=== PATIENT | male | born 1940 | race Caucasian/White ===

== ENCOUNTER 2017-12-08 00:50 | Emergency (ER) | payer OTHER ==
[~2017-12-08] VITALS: Ht 175.3 cm; Wt 81.6 kg
[~2017-12-08 00:50] MED LIST: ACET325C PO; ASA81 PO; CEFE1PIG3 IV; CLOP75TA2 PO; DOCU-144 PO; DONE10TA44 PO; HYDR-1189 PO; IMIP50TA2 PO; INSU100V11 SQ; INSU100V26 SUBCUT; LEVO88TA2 PO; LISI40TA4 PO; METO-442 PO; NIAC500T2 PO; NITSL SL; NOR10 PO; PRAM0.253 PO
[2017-12-08 00:56] VITALS: BP_SYST 101
[2017-12-08 02:12] LABS: BASOPHILS % (AUTO) 0.4 % (0.0-2.0); EOSINOPHILS # (AUTO) 0.1 K/uL (0.0-0.4); EOSINOPHILS % (AUTO) 1.8 % (0.0-4.0); HEMATOCRIT 43.5 % (36-54); HEMOGLOBIN 14.7 g/dL (14.0-18.0); LYMPHOCYTES # (AUTO) 2.1 K/uL (1.0-5.5); LYMPHOCYTES % (AUTO) 26.8 % (20.5-51.5); MEAN CORPUSCULAR HEMOGLOBIN 32 pg (27-31); MEAN CORPUSCULAR HGB CONC 34 % (32-36); MEAN CORPUSCULAR VOLUME 93 fL (79.0-98.0); MONOCYTES # (AUTO) 0.7 K/uL (0.0-1.0); MONOCYTES % (AUTO) 9.5 % (1.7-9.3); NEUTROPHILS # (AUTO) 4.8 K/uL (1.8-7.7); NEUTROPHILS % (AUTO) 61.5 % (40.0-70.0); PLATELET COUNT (AUTO) 292 K/uL (130-430); RED BLOOD CELL COUNT(AUTO) 4.67 MIL/uL (4.2-6.2); RED CELL DISTRIBUTION WIDTH 12.5 % (9.0-15.0); WHITE BLOOD COUNT (AUTO) 7.7 K/uL (4.8-10.8)
[2017-12-08 02:21] LABS: ANION GAP 5 (5-15); CALCIUM 10.2 mg/dL (8.4-11.0); CHLORIDE 102 mmol/L (98-107); CREATININE 0.84 mg/dL (0.55-1.30); GLUCOSE 129 mg/dL (70-99); POTASSIUM 3.8 mmol/L (3.5-5.1); SODIUM SERUM 136 mmol/L (136-145); UREA NITROGEN, BLOOD 24 mg/dL (8-21)
[2017-12-08 02:26] LABS: ALANINE AMINOTRANSFERASE 39 U/L (12-78); ALBUMIN 3.8 g/dL (3.4-4.8); ASPARTATE AMINOTRANSFERASE 20 U/L (10-37); TOTAL BILIRUBIN 0.7 mg/dL (0.0-1.0)
[2017-12-08 02:28] LABS: PROTHROMBIN TIME 10.2 SECS (9.5-12.5)
[2017-12-08 04:00] VITALS: BP_SYST 100
== END 2017-12-08 04:00 | disposition home or self-care (01) ==
LOC: SED 00:50
DX: S09.90XA Unspecified injury of head, initial encounter (principal); F03.90 Unspecified dementia, unspecified severity, without behavioral disturbance, psychotic disturbance, mood disturbance, and anxiety; I25.10 Atherosclerotic heart disease of native coronary artery without angina pectoris; E11.9 Type 2 diabetes mellitus without complications; I10 Essential (primary) hypertension; N40.0 Benign prostatic hyperplasia without lower urinary tract symptoms; Z88.0 Allergy status to penicillin; Z79.4 Long term (current) use of insulin; Z79.82 Long term (current) use of aspirin; Z79.899 Other long term (current) drug therapy; W18.00XA Striking against unspecified object with subsequent fall, initial encounter; Y93.89 Activity, other specified; Y92.89 Other specified places as the place of occurrence of the external cause; Y99.8 Other external cause status
CPT/HCPCS: 36415; 70450-TC; 80053; 85025; 85610-TC; 85730-TC; 99285

== ENCOUNTER 2018-02-16 12:52 | Emergency (ER) | payer OTHER ==
[~2018-02-16] VITALS: Ht 182.9 cm; Wt 77.1 kg
[~2018-02-16 12:52] MED LIST changes: +ESOM40CA PO; +EXEN2VIA SQ; +FOLI-59 PO; -HYDR-1189 PO; +INSU100V9 SUBCUT; +LOPE2CAP PO; +MEMA28CA PO; +MIRA25TA PO; +NEU300 PO; +OMEG1CAP55 PO; +ROSU10TA PO; +VITD2000 PO; +[UNRECOGNIZED DRUG - CODE] PO
[2018-02-16 12:55] VITALS: BP_SYST 98
[2018-02-16 14:26] LABS: ANION GAP 5 (5-15); CALCIUM 9.5 mg/dL (8.4-11.0); CHLORIDE 101 mmol/L (98-107); CREATININE 0.86 mg/dL (0.55-1.30); GLUCOSE 160 mg/dL (70-99); POTASSIUM 4.3 mmol/L (3.5-5.1); SODIUM SERUM 138 mmol/L (136-145); UREA NITROGEN, BLOOD 10 mg/dL (8-21)
[2018-02-16 14:27] LABS: BASOPHILS % (AUTO) 0.3 % (0.0-2.0); EOSINOPHILS # (AUTO) 0.4 K/uL (0.0-0.4); EOSINOPHILS % (AUTO) 4.2 % (0.0-4.0); HEMATOCRIT 44.5 % (36-54); HEMOGLOBIN 14.8 g/dL (14.0-18.0); LYMPHOCYTES # (AUTO) 1.2 K/uL (1.0-5.5); LYMPHOCYTES % (AUTO) 11.1 % (20.5-51.5); MEAN CORPUSCULAR HEMOGLOBIN 31 pg (27-31); MEAN CORPUSCULAR HGB CONC 33 % (32-36); MONOCYTES # (AUTO) 0.6 K/uL (0.0-1.0); NEUTROPHILS # (AUTO) 8.4 K/uL (1.8-7.7); NEUTROPHILS % (AUTO) 78.4 % (40.0-70.0); PLATELET COUNT (AUTO) 262 K/uL (130-430); RED BLOOD CELL COUNT(AUTO) 4.84 MIL/uL (4.2-6.2); RED CELL DISTRIBUTION WIDTH 12.2 % (9.0-15.0); WHITE BLOOD COUNT (AUTO) 10.6 K/uL (4.8-10.8)
[2018-02-16 14:30] LABS: PROTHROMBIN TIME 10.2 SECS (9.5-12.5)
[2018-02-16 14:31] LABS: ALANINE AMINOTRANSFERASE 374 U/L (12-78); ALBUMIN 2.8 g/dL (3.4-4.8); ASPARTATE AMINOTRANSFERASE 151 U/L (10-37); TOTAL BILIRUBIN 0.7 mg/dL (0.0-1.0)
[2018-02-16 14:34] LABS: MEAN CORPUSCULAR VOLUME 92 fL (79.0-98.0)
[2018-02-16] MEDS ORDERED: ACETAMINOPHEN 325 MG TABLET PO ONE (16:00)
[2018-02-16 16:06] VITALS: BP_SYST 110
== END 2018-02-16 16:06 | disposition home or self-care (01) ==
LOC: SED 12:52
DX: S16.1XXA Strain of muscle, fascia and tendon at neck level, initial encounter (principal); S09.90XA Unspecified injury of head, initial encounter; I10 Essential (primary) hypertension; F03.90 Unspecified dementia, unspecified severity, without behavioral disturbance, psychotic disturbance, mood disturbance, and anxiety; N40.0 Benign prostatic hyperplasia without lower urinary tract symptoms; I25.10 Atherosclerotic heart disease of native coronary artery without angina pectoris; E11.9 Type 2 diabetes mellitus without complications; Z79.4 Long term (current) use of insulin; Z79.82 Long term (current) use of aspirin; Z88.0 Allergy status to penicillin; Z90.49 Acquired absence of other specified parts of digestive tract; Z79.01 Long term (current) use of anticoagulants; Z95.9 Presence of cardiac and vascular implant and graft, unspecified; Z79.899 Other long term (current) drug therapy; W19.XXXA Unspecified fall, initial encounter; Y93.89 Activity, other specified; Y92.89 Other specified places as the place of occurrence of the external cause; Y99.8 Other external cause status
CPT/HCPCS: 36415; 70450-TC; 72125-TC; 80053; 84484; 85025; 85610-TC; 85730-TC; 93005; 99285

== ENCOUNTER 2018-04-07 09:10 | Inpatient (IN) | payer OTHER ==
[~2018-04-07] VITALS: Ht 180.3 cm; Wt 74.4 kg
[2018-04-07 09:10] VITALS: BP_SYST 116
[2018-04-07] MEDS ORDERED: NACL 0.9% 1,000 ML IV ONE (09:18)
[2018-04-07] MEDS ORDERED: ASPIRIN 81 MG TAB.CHEW PO ONE (09:30)
[2018-04-07 10:10] LABS: ANION GAP 11 (5-15); CALCIUM 9.3 mg/dL (8.4-11.0); CHLORIDE 103 mmol/L (98-107); CREATININE 0.87 mg/dL (0.55-1.30); GLUCOSE 148 mg/dL (70-99); POTASSIUM 3.4 mmol/L (3.5-5.1); SODIUM SERUM 140 mmol/L (136-145); UREA NITROGEN, BLOOD 18 mg/dL (8-21)
[2018-04-07 10:14] LABS: ALANINE AMINOTRANSFERASE 695 U/L (12-78); ALBUMIN 3.9 g/dL (3.4-4.8); AMYLASE 72 U/L (0-100); ASPARTATE AMINOTRANSFERASE 483 U/L (10-37); INR 1.6 (0.80-1.20); LIPASE 317 U/L (73-393); PROTHROMBIN TIME 16.4 SECS (9.5-12.5); TOTAL BILIRUBIN 0.7 mg/dL (0.0-1.0)
[2018-04-07 10:15] LABS: ALCOHOL, BLOOD < 3 mg/dL (<10)
[2018-04-07 10:24] LABS: EOSINOPHILS # (AUTO) 0.4 K/uL (0.0-0.4); HEMATOCRIT 48.3 % (36-54); LYMPHOCYTES # (AUTO) 1.5 K/uL (1.0-5.5); LYMPHOCYTES % (AUTO) 19.7 % (20.5-51.5); MEAN CORPUSCULAR HEMOGLOBIN 31 pg (27-31); MEAN CORPUSCULAR HGB CONC 33 % (32-36); MEAN CORPUSCULAR VOLUME 93 fL (79.0-98.0); MONOCYTES # (AUTO) 0.7 K/uL (0.0-1.0); MONOCYTES % (AUTO) 9.2 % (1.7-9.3); PLATELET COUNT (AUTO) 160 K/uL (130-430); RED BLOOD CELL COUNT(AUTO) 5.19 MIL/uL (4.2-6.2); RED CELL DISTRIBUTION WIDTH 13.8 % (9.0-15.0); WHITE BLOOD COUNT (AUTO) 7.6 K/uL (4.8-10.8)
[2018-04-07 10:27] LABS: BASOPHILS % (AUTO) 0.1 % (0.0-2.0)
[2018-04-07] MEDS ORDERED: CLOPIDOGREL BISULFATE 75 MG TABLET PO ONE (10:30)
[2018-04-07 11:13] LABS: BILIRUBIN,URINE 1+ (NEGATIVE); BLOOD, URINE NEGATIVE (NEGATIVE); CLARITY/URINE CLEAR (CLEAR); COLOR,URINE YELLOW (YELLOW); GLUCOSE,URINE NEGATIVE (NEGATIVE); KETONES,URINE 1+ (NEGATIVE); LEUKOCYTE ESTERASE ,URINE NEGATIVE (NEGATIVE); NITRITE, URINE NEGATIVE (NEGATIVE); PROTEIN URINE NEGATIVE (NEGATIVE)
[2018-04-07 11:19] LABS: BACTERIA,URINE RARE /HPF (None Seen); MUCUS,URINE 1+ /LPF (None Seen); RBC,URINE 0-3 /HPF (0-3); WBC,URINE 0-3 /HPF (0-3)
[2018-04-07 11:24] VITALS: BP_SYST 139
[2018-04-07 11:24] LABS: BARBITURATE, URINE NEGATIVE (NEG <=200); BENZODIAZEPINE, URINE NEGATIVE (NEG <=150); CANNABINOID, URINE NEGATIVE (NEG <=50); COCAINE, URINE NEGATIVE (NEG <=150); METHAMPHETAMINES SCREEN,URINE NEGATIVE (NEG <=500); OPIATE, URINE NEGATIVE (NEG <=100); PHENCYCLIDINE SCREEN,URINE NEGATIVE (NEG <=25); UR TRICYCLIC ANTIDEPRESSANTS NEGATIVE (NEG <=300); URINE AMPHETAMINE NEGATIVE (NEG <=500); URINE METHADONE NEGATIVE (NEG <=200); URINE OXYCODONE SCREEN NEGATIVE (NEG <=100); URINE PROPOXYPHENE SCREEN NEGATIVE (NEG <=300)
[2018-04-07 11:27] VITALS: BP_SYST 139
[2018-04-07] MEDS ORDERED: D5LR 1,000 ML IV SCH (13:30)
[2018-04-07] MEDS ORDERED: POTASSIUM CHLORIDE 40 MEQ, LIDOCAINE JECT 2% PF 100 MG 50 MG in NS 250 ML IV ONE (13:30)
[2018-04-07] MEDS ORDERED: NITROGLYCERIN 0.4 MG TAB.SUBL SL PRN (13:45)
[2018-04-07] MEDS ORDERED: DEXTROSE 50% JECT 50 ML DISP.SYRIN IVP PRN (14:00)
[2018-04-07 15:24] VITALS: BP_SYST 144
[2018-04-07] MEDS: INSULIN REGULAR, HUMAN 100 UNITS/ML, 10 ML VIAL (novoLIN R) SUBCUT PRN ×2 (17:30→21:28)
[2018-04-07 20:00] VITALS: BP_SYST 158
[2018-04-07] MEDS ORDERED: PRAMIPEXOLE DI-HCL 0.25 MG TABLET PO SCH (21:00)
[2018-04-07] MEDS ORDERED: NON-FORMULARY MEDICATION (Mirabegron (Myrbetriq) 25 MG) PO SCH (21:00)
[2018-04-07] MEDS: DONEPEZIL HCL 5 MG TABLET (ARICEPT) PO SCH (21:19)
[2018-04-07] MEDS: amLODIPine BESYLATE 10 MG TABLET PO SCH (21:21)
[2018-04-07] MEDS ORDERED: cloNIDine HCL 0.1 MG TABLET PO PRN (23:15)
[2018-04-07] MEDS: LR 1,000 ML IV SCH (23:45)
[2018-04-08 00:09] VITALS: BP_SYST 151
[2018-04-08 04:09] VITALS: BP_SYST 143
[2018-04-08] MEDS: LEVOTHYROXINE SODIUM 0.075 MG TABLET PO SCH (06:14)
[2018-04-08] MEDS: LEVOTHYROXINE SODIUM 0.1 MG TABLET PO SCH (06:14)
[2018-04-08] MEDS: INSULIN REGULAR, HUMAN 100 UNITS/ML, 10 ML VIAL (novoLIN R) SUBCUT PRN ×3 (06:14→20:36)
[2018-04-08] MEDS ORDERED: LEVOTHYROXINE SODIUM 0.088 MG TABLET PO SCH (07:00)
[2018-04-08 07:30] LABS: ALBUMIN 3.4 g/dL (3.4-4.8); ANION GAP 6 (5-15); CALCIUM 8.8 mg/dL (8.4-11.0); CHLORIDE 108 mmol/L (98-107); CHOLESTEROL 67 mg/dL (<200); CREATININE 0.72 mg/dL (0.55-1.30); GLUCOSE 161 mg/dL (70-99); HDL CHOLESTEROL 40 mg/dL (>45); LDL CHOLESTEROL 19 mg/dL (<100); POTASSIUM 3.5 mmol/L (3.5-5.1); SODIUM SERUM 141 mmol/L (136-145); TOTAL BILIRUBIN 0.7 mg/dL (0.0-1.0); TRIGLYCERIDES 38 mg/dL (30-150); UREA NITROGEN, BLOOD 14 mg/dL (8-21)
[2018-04-08 07:36] LABS: ASPARTATE AMINOTRANSFERASE 240 U/L (10-37)
[2018-04-08 07:37] LABS: ALANINE AMINOTRANSFERASE 475 U/L (12-78)
[2018-04-08 07:44] LABS: HEMATOCRIT 45.5 % (36-54); HEMOGLOBIN 15.3 g/dL (14.0-18.0); MEAN CORPUSCULAR HEMOGLOBIN 31 pg (27-31); MEAN CORPUSCULAR HGB CONC 34 % (32-36); MEAN CORPUSCULAR VOLUME 93 fL (79.0-98.0); PLATELET COUNT (AUTO) 118 K/uL (130-430); RED CELL DISTRIBUTION WIDTH 13.9 % (9.0-15.0); WHITE BLOOD COUNT (AUTO) 7.4 K/uL (4.8-10.8)
[2018-04-08 08:00] VITALS: BP_SYST 135
[2018-04-08] MEDS ORDERED: amLODIPine BESYLATE 10 MG TABLET PO SCH (09:00)
[2018-04-08 09:02] LABS: BASOPHILS % (MANUAL) 0 % (0-2); EOSINOPHILS % (MANUAL) 4 % (0-7); LYMPHOCYTES % (MANUAL) 15 % (20-46); MONOCYTES % (MANUAL) 13 % (0-11)
[2018-04-08] MEDS: MEMANTINE HCL 5 MG TABLET PO SCH ×2 (09:20→20:24)
[2018-04-08] MEDS: PANTOPRAZOLE SODIUM 40 MG TAB PO SCH (09:20)
[2018-04-08] MEDS: CHOLECALCIFEROL (VITAMIN D3) 2,000 UNIT TABLET PO SCH (09:20)
[2018-04-08] MEDS: MULTIVITS,CA,MINERALS/IRON/FA 1 TABLET PO SCH (09:22)
[2018-04-08] MEDS: METOPROLOL TARTRATE 50 MG TABLET PO SCH (09:22)
[2018-04-08] MEDS: CLOPIDOGREL BISULFATE 75 MG TABLET PO SCH (09:22)
[2018-04-08] MEDS: ASPIRIN 81 MG TAB.CHEW PO SCH (09:22)
[2018-04-08 12:05] VITALS: BP_SYST 114
[2018-04-08] MEDS: LR 1,000 ML IV SCH (15:00)
[2018-04-08 16:07] VITALS: BP_SYST 117
[2018-04-08] MEDS: CARBIDOPA/LEVODOPA 25/100 MG TABLET PO SCH ×2 (17:50→20:24)
[2018-04-08 19:45] VITALS: BP_SYST 149
[2018-04-08] MEDS: amLODIPine BESYLATE 10 MG TABLET PO SCH (20:18)
[2018-04-08] MEDS: DONEPEZIL HCL 5 MG TABLET (ARICEPT) PO SCH (20:24)
[2018-04-09 00:14] VITALS: BP_SYST 132
[2018-04-09] MEDS: LR 1,000 ML IV SCH ×2 (03:51→17:16)
[2018-04-09] MEDS: LEVOTHYROXINE SODIUM 0.075 MG TABLET PO SCH (06:08)
[2018-04-09] MEDS: LEVOTHYROXINE SODIUM 0.1 MG TABLET PO SCH (06:08)
[2018-04-09 07:19] LABS: BASOPHILS % (AUTO) 0.6 % (0.0-2.0); EOSINOPHILS # (AUTO) 0.4 K/uL (0.0-0.4); EOSINOPHILS % (AUTO) 5.4 % (0.0-4.0); HEMATOCRIT 46.8 % (36-54); LYMPHOCYTES # (AUTO) 1.5 K/uL (1.0-5.5); LYMPHOCYTES % (AUTO) 22.1 % (20.5-51.5); MEAN CORPUSCULAR HEMOGLOBIN 31 pg (27-31); MEAN CORPUSCULAR HGB CONC 34 % (32-36); MEAN CORPUSCULAR VOLUME 92 fL (79.0-98.0); MONOCYTES # (AUTO) 0.7 K/uL (0.0-1.0); MONOCYTES % (AUTO) 10.7 % (1.7-9.3); NEUTROPHILS # (AUTO) 4.1 K/uL (1.8-7.7); NEUTROPHILS % (AUTO) 61.2 % (40.0-70.0); PLATELET COUNT (AUTO) 109 K/uL (130-430); RED BLOOD CELL COUNT(AUTO) 5.11 MIL/uL (4.2-6.2); RED CELL DISTRIBUTION WIDTH 13.8 % (9.0-15.0); WHITE BLOOD COUNT (AUTO) 6.7 K/uL (4.8-10.8)
[2018-04-09 07:28] LABS: PROTHROMBIN TIME 10.3 SECS (9.5-12.5)
[2018-04-09 08:30] VITALS: BP_SYST 124
[2018-04-09] MEDS: ASPIRIN 81 MG TAB.CHEW PO SCH (08:33)
[2018-04-09] MEDS: CHOLECALCIFEROL (VITAMIN D3) 2,000 UNIT TABLET PO SCH (08:33)
[2018-04-09] MEDS: PANTOPRAZOLE SODIUM 40 MG TAB PO SCH (08:33)
[2018-04-09] MEDS: MULTIVITS,CA,MINERALS/IRON/FA 1 TABLET PO SCH (08:33)
[2018-04-09] MEDS: MEMANTINE HCL 5 MG TABLET PO SCH ×2 (08:34→21:48)
[2018-04-09] MEDS: CLOPIDOGREL BISULFATE 75 MG TABLET PO SCH (08:34)
[2018-04-09] MEDS: METOPROLOL TARTRATE 50 MG TABLET PO SCH (08:34)
[2018-04-09] MEDS: CARBIDOPA/LEVODOPA 25/100 MG TABLET PO SCH ×4 (08:35→21:48)
[2018-04-09 11:07] LABS: HEPATITIS A AB, IgM Negative (Negative); HEPATITIS B CORE AB, IgM Negative (Negative); HEPATITIS B SURFACE AG Negative (Negative)
[2018-04-09 11:34] VITALS: BP_SYST 105
[2018-04-09] MEDS: INSULIN REGULAR, HUMAN 100 UNITS/ML, 10 ML VIAL (novoLIN R) SUBCUT PRN ×3 (11:54→21:57)
[2018-04-09 13:43] LABS: ALANINE AMINOTRANSFERASE 331 U/L (12-78); ALBUMIN 3.5 g/dL (3.4-4.8); ANION GAP 7 (5-15); ASPARTATE AMINOTRANSFERASE 290 U/L (10-37); CALCIUM 8.9 mg/dL (8.4-11.0); CHLORIDE 106 mmol/L (98-107); CREATININE 0.65 mg/dL (0.55-1.30); GLUCOSE 138 mg/dL (70-99); POTASSIUM 3.4 mmol/L (3.5-5.1); SODIUM SERUM 139 mmol/L (136-145); TOTAL BILIRUBIN 0.8 mg/dL (0.0-1.0); UREA NITROGEN, BLOOD 10 mg/dL (8-21)
[2018-04-09 16:06] VITALS: BP_SYST 98
[2018-04-09 20:00] VITALS: BP_SYST 134
[2018-04-09] MEDS: DONEPEZIL HCL 5 MG TABLET (ARICEPT) PO SCH (21:48)
[2018-04-09] MEDS: amLODIPine BESYLATE 10 MG TABLET PO SCH (21:49)
[2018-04-10] VITALS (7 sets, daily range): BP systolic 98–135
[2018-04-10] MEDS: LEVOTHYROXINE SODIUM 0.075 MG TABLET PO SCH (06:04)
[2018-04-10] MEDS: LEVOTHYROXINE SODIUM 0.1 MG TABLET PO SCH (06:04)
[2018-04-10] MEDS: LR 1,000 ML IV SCH ×2 (06:12→21:13)
[2018-04-10 07:28] LABS: BASOPHILS % (AUTO) 0.6 % (0.0-2.0); EOSINOPHILS # (AUTO) 0.2 K/uL (0.0-0.4); EOSINOPHILS % (AUTO) 3.7 % (0.0-4.0); HEMOGLOBIN 15.9 g/dL (14.0-18.0); LYMPHOCYTES # (AUTO) 1.4 K/uL (1.0-5.5); LYMPHOCYTES % (AUTO) 21.6 % (20.5-51.5); MEAN CORPUSCULAR HEMOGLOBIN 31 pg (27-31); MEAN CORPUSCULAR HGB CONC 34 % (32-36); MEAN CORPUSCULAR VOLUME 93 fL (79.0-98.0); MONOCYTES # (AUTO) 0.8 K/uL (0.0-1.0); MONOCYTES % (AUTO) 11.7 % (1.7-9.3); NEUTROPHILS # (AUTO) 4.2 K/uL (1.8-7.7); NEUTROPHILS % (AUTO) 62.4 % (40.0-70.0); PLATELET COUNT (AUTO) 133 K/uL (130-430); RED BLOOD CELL COUNT(AUTO) 5.07 MIL/uL (4.2-6.2); RED CELL DISTRIBUTION WIDTH 13.5 % (9.0-15.0); WHITE BLOOD COUNT (AUTO) 6.6 K/uL (4.8-10.8)
[2018-04-10 08:09] LABS: AFP, TUMOR MARKER 1.8 ng/mL (0.0-8.3); HEPATITIS A AB, IgM Negative (Negative); HEPATITIS B CORE AB, IgM Negative (Negative); HEPATITIS B SURFACE AG Negative (Negative)
[2018-04-10 08:49] LABS: ALANINE AMINOTRANSFERASE 191 U/L (12-78); ALBUMIN 3.1 g/dL (3.4-4.8); ANION GAP 10 (5-15); ASPARTATE AMINOTRANSFERASE 188 U/L (10-37); CHLORIDE 103 mmol/L (98-107); CREATININE 0.71 mg/dL (0.55-1.30); GLUCOSE 148 mg/dL (70-99); POTASSIUM 3.3 mmol/L (3.5-5.1); SODIUM SERUM 136 mmol/L (136-145); UREA NITROGEN, BLOOD 10 mg/dL (8-21)
[2018-04-10] MEDS: METOPROLOL TARTRATE 50 MG TABLET PO SCH (09:00)
[2018-04-10] MEDS: CHOLECALCIFEROL (VITAMIN D3) 2,000 UNIT TABLET PO SCH (09:14)
[2018-04-10] MEDS: CARBIDOPA/LEVODOPA 25/100 MG TABLET PO SCH ×4 (09:14→21:07)
[2018-04-10] MEDS: PANTOPRAZOLE SODIUM 40 MG TAB PO SCH (09:14)
[2018-04-10] MEDS: CLOPIDOGREL BISULFATE 75 MG TABLET PO SCH (09:14)
[2018-04-10] MEDS: ASPIRIN 81 MG TAB.CHEW PO SCH (09:15)
[2018-04-10] MEDS: MULTIVITS,CA,MINERALS/IRON/FA 1 TABLET PO SCH (09:15)
[2018-04-10] MEDS: MEMANTINE HCL 5 MG TABLET PO SCH ×2 (09:15→21:07)
[2018-04-10] MEDS: INSULIN REGULAR, HUMAN 100 UNITS/ML, 10 ML VIAL (novoLIN R) SUBCUT PRN (11:28)
[2018-04-10 18:06] LABS: ANTI NUCLEAR AB WITH REFLEX Negative (Negative)
[2018-04-10] MEDS: DONEPEZIL HCL 5 MG TABLET (ARICEPT) PO SCH (21:07)
[2018-04-10] MEDS: amLODIPine BESYLATE 10 MG TABLET PO SCH (21:12)
[2018-04-11] MEDS: LEVOTHYROXINE SODIUM 0.1 MG TABLET PO SCH (06:31)
[2018-04-11] MEDS: LEVOTHYROXINE SODIUM 0.075 MG TABLET PO SCH (06:31)
[2018-04-11 07:50] VITALS: BP_SYST 111
[2018-04-11] MEDS: MEMANTINE HCL 5 MG TABLET PO SCH ×2 (08:44→20:58)
[2018-04-11] MEDS: CHOLECALCIFEROL (VITAMIN D3) 2,000 UNIT TABLET PO SCH (08:44)
[2018-04-11] MEDS: CARBIDOPA/LEVODOPA 25/100 MG TABLET PO SCH ×4 (08:44→20:58)
[2018-04-11] MEDS: CLOPIDOGREL BISULFATE 75 MG TABLET PO SCH (08:44)
[2018-04-11] MEDS: METOPROLOL TARTRATE 50 MG TABLET PO SCH (08:44)
[2018-04-11] MEDS: PANTOPRAZOLE SODIUM 40 MG TAB PO SCH (08:44)
[2018-04-11] MEDS: MULTIVITS,CA,MINERALS/IRON/FA 1 TABLET PO SCH (08:44)
[2018-04-11] MEDS: ASPIRIN 81 MG TAB.CHEW PO SCH (08:45)
[2018-04-11 10:49] LABS: ANION GAP 11 (5-15); CALCIUM 8.7 mg/dL (8.4-11.0); CHLORIDE 105 mmol/L (98-107); CREATININE 0.86 mg/dL (0.55-1.30); GLUCOSE 146 mg/dL (70-99); POTASSIUM 3.5 mmol/L (3.5-5.1); SODIUM SERUM 143 mmol/L (136-145); UREA NITROGEN, BLOOD 11 mg/dL (8-21)
[2018-04-11 10:58] LABS: ALANINE AMINOTRANSFERASE 129 U/L (12-78); ALBUMIN 3.5 g/dL (3.4-4.8); ASPARTATE AMINOTRANSFERASE 98 U/L (10-37); TOTAL BILIRUBIN 0.6 mg/dL (0.0-1.0)
[2018-04-11] MEDS: INSULIN REGULAR, HUMAN 100 UNITS/ML, 10 ML VIAL (novoLIN R) SUBCUT PRN ×2 (11:16→17:11)
[2018-04-11 12:05] VITALS: BP_SYST 104
[2018-04-11] MEDS: LR 1,000 ML IV SCH (13:21)
[2018-04-11 16:53] VITALS: BP_SYST 129
[2018-04-11 20:00] VITALS: BP_SYST 127
[2018-04-11] MEDS: DONEPEZIL HCL 5 MG TABLET (ARICEPT) PO SCH (20:58)
[2018-04-11] MEDS: amLODIPine BESYLATE 10 MG TABLET PO SCH (20:59)
[2018-04-12 00:56] VITALS: BP_SYST 115
[2018-04-12] MEDS: LR 1,000 ML IV SCH ×2 (03:36→16:54)
[2018-04-12] MEDS: LEVOTHYROXINE SODIUM 0.1 MG TABLET PO SCH (06:03)
[2018-04-12] MEDS: LEVOTHYROXINE SODIUM 0.075 MG TABLET PO SCH (06:03)
[2018-04-12 08:00] VITALS: BP_SYST 149
[2018-04-12] MEDS: PANTOPRAZOLE SODIUM 40 MG TAB PO SCH (08:43)
[2018-04-12] MEDS: CLOPIDOGREL BISULFATE 75 MG TABLET PO SCH (08:43)
[2018-04-12] MEDS: CARBIDOPA/LEVODOPA 25/100 MG TABLET PO SCH ×4 (08:44→20:55)
[2018-04-12] MEDS: MEMANTINE HCL 5 MG TABLET PO SCH ×2 (08:44→20:55)
[2018-04-12] MEDS: MULTIVITS,CA,MINERALS/IRON/FA 1 TABLET PO SCH (08:45)
[2018-04-12] MEDS: METOPROLOL TARTRATE 50 MG TABLET PO SCH (08:45)
[2018-04-12] MEDS: ASPIRIN 81 MG TAB.CHEW PO SCH (08:45)
[2018-04-12] MEDS: CHOLECALCIFEROL (VITAMIN D3) 2,000 UNIT TABLET PO SCH (08:46)
[2018-04-12 09:11] LABS: ANTI-SMOOTH MUSCLE AB 7 Units (0-19)
[2018-04-12] MEDS: INSULIN REGULAR, HUMAN 100 UNITS/ML, 10 ML VIAL (novoLIN R) SUBCUT PRN ×3 (12:21→21:03)
[2018-04-12 12:54] VITALS: BP_SYST 132
[2018-04-12 16:40] VITALS: BP_SYST 128
[2018-04-12 20:00] VITALS: BP_SYST 144
[2018-04-12] MEDS: DONEPEZIL HCL 5 MG TABLET (ARICEPT) PO SCH (20:55)
[2018-04-12] MEDS: amLODIPine BESYLATE 10 MG TABLET PO SCH (20:59)
[2018-04-12 22:29] VITALS: BP_SYST 127
[2018-04-13] MEDS: LEVOTHYROXINE SODIUM 0.075 MG TABLET PO SCH (06:15)
[2018-04-13] MEDS: LEVOTHYROXINE SODIUM 0.1 MG TABLET PO SCH (06:15)
[2018-04-13] MEDS: LR 1,000 ML IV SCH (06:16)
[2018-04-13 08:02] VITALS: BP_SYST 152
[2018-04-13] MEDS: CARBIDOPA/LEVODOPA 25/100 MG TABLET PO SCH ×2 (09:21→13:22)
[2018-04-13] MEDS: ASPIRIN 81 MG TAB.CHEW PO SCH (09:21)
[2018-04-13] MEDS: MEMANTINE HCL 5 MG TABLET PO SCH (09:21)
[2018-04-13] MEDS: CHOLECALCIFEROL (VITAMIN D3) 2,000 UNIT TABLET PO SCH (09:22)
[2018-04-13] MEDS: PANTOPRAZOLE SODIUM 40 MG TAB PO SCH (09:22)
[2018-04-13] MEDS: METOPROLOL TARTRATE 50 MG TABLET PO SCH (09:22)
[2018-04-13] MEDS: MULTIVITS,CA,MINERALS/IRON/FA 1 TABLET PO SCH (09:22)
[2018-04-13] MEDS: CLOPIDOGREL BISULFATE 75 MG TABLET PO SCH (09:22)
[2018-04-13 11:34] VITALS: BP_SYST 99
[2018-04-13] MEDS: INSULIN REGULAR, HUMAN 100 UNITS/ML, 10 ML VIAL (novoLIN R) SUBCUT PRN (11:44)
[2018-04-13 15:29] VITALS: BP_SYST 90
[2018-04-13 16:07] VITALS: BP_SYST 99
== END 2018-04-13 16:20 | DRG 280 ==
LOC: SED 09:10 → STU 10:53 → SMU 04-09 10:42
PROVIDERS: ADMIT Internal Medicine Hospice and Palliative Medicine; ATTEND Internal Medicine Hospice and Palliative Medicine
DX: I21.A1 Myocardial infarction type 2 (principal); G92 Toxic encephalopathy; R53.2 Functional quadriplegia; E11.51 Type 2 diabetes mellitus with diabetic peripheral angiopathy without gangrene; G20 Parkinson's disease; G30.9 Alzheimer's disease, unspecified; F02.80 Dementia in other diseases classified elsewhere, unspecified severity, without behavioral disturbance, psychotic disturbance, mood disturbance, and anxiety; I11.9 Hypertensive heart disease without heart failure; E78.00 Pure hypercholesterolemia, unspecified; E78.5 Hyperlipidemia, unspecified; G31.9 Degenerative disease of nervous system, unspecified; R74.0 Nonspecific elevation of levels of transaminase and lactic acid dehydrogenase [LDH]; Z66 Do not resuscitate; Z51.5 Encounter for palliative care; E87.6 Hypokalemia; I25.119 Atherosclerotic heart disease of native coronary artery with unspecified angina pectoris; N32.81 Overactive bladder; Z89.422 Acquired absence of other left toe(s); Z90.49 Acquired absence of other specified parts of digestive tract; Z95.5 Presence of coronary angioplasty implant and graft; Z79.4 Long term (current) use of insulin; Z88.0 Allergy status to penicillin
CPT/HCPCS: 36415; 70450-TC; 71045; 76700-TC; 80053; 80061; 80074; 80307; 81000-TC; 82105; 82140-TC; 82150-TC; 82550-TC; 82962; 82977-TC; 83516; 83605; 83690-TC; 83735-TC; 84484; 85007; 85025; 85027; 85610-TC; 85730-TC; 86038; 87040-TC; 87081; 87086; 93005; 93306; 96360; 97110-GP; 97116-GP; 97530-GP; 99285; G0480; G0482; J1815; J3480; J7050; J7120

== ENCOUNTER 2019-12-09 19:07 | Emergency (ER) | payer OTHER ==
[~2019-12-09] VITALS: Ht 177.8 cm; Wt 81.6 kg
[~2019-12-09 19:07] MED LIST changes: -ACET325C PO; -CEFE1PIG3 IV; -DOCU-144 PO; -LISI40TA4 PO; -OMEG1CAP55 PO; -ROSU10TA PO; +ROSU10TA2 PO; -[UNRECOGNIZED DRUG - CODE] PO
[2019-12-09 19:20] VITALS: BP_SYST 99
--- NOTE | 2019-12-09 19:26 | NUR ---
Patient triaged and placed in waiting room. VSS and patient appears in no acute distress at this time. Accompanied by family, awaiting available bed, and MD notified of need for MSE.
[2019-12-09 19:49] LABS: BASOPHILS # (AUTO) 0.1 K/uL (0.0-0.2); BASOPHILS % (AUTO) 0.8 % (0.0-2.0); EOSINOPHILS # (AUTO) 0.3 K/uL (0.0-0.4); EOSINOPHILS % (AUTO) 2.7 % (0.0-4.0); HEMATOCRIT 44.5 % (36-54); HEMOGLOBIN 15.3 g/dL (14.0-18.0); LYMPHOCYTES # (AUTO) 2.1 K/uL (1.0-5.5); LYMPHOCYTES % (AUTO) 19.4 % (20.5-51.5); MEAN CORPUSCULAR HEMOGLOBIN 32 pg (27-31); MEAN CORPUSCULAR HGB CONC 34 % (32-36); MEAN CORPUSCULAR VOLUME 92 fL (79.0-98.0); MONOCYTES # (AUTO) 0.8 K/uL (0.0-1.0); MONOCYTES % (AUTO) 7.7 % (1.7-9.3); NEUTROPHILS # (AUTO) 7.4 K/uL (1.8-7.7); NEUTROPHILS % (AUTO) 69.4 % (40.0-70.0); PLATELET COUNT (AUTO) 226 K/uL (130-430); RED BLOOD CELL COUNT(AUTO) 4.87 MIL/uL (4.2-6.2); RED CELL DISTRIBUTION WIDTH 13.4 % (9.0-15.0); WHITE BLOOD COUNT (AUTO) 10.7 K/uL (4.8-10.8)
[2019-12-09 20:01] LABS: ANION GAP 6 (5-15); CALCIUM 9.2 mg/dL (8.4-11.0); CHLORIDE 103 mmol/L (98-107); CREATININE 0.97 mg/dL (0.55-1.30); GLUCOSE 159 mg/dL (70-99); SODIUM SERUM 138 mmol/L (136-145); UREA NITROGEN, BLOOD 32 mg/dL (8-21)
[2019-12-09 20:07] LABS: CHOLESTEROL 135 mg/dL (<200); HDL CHOLESTEROL 28 mg/dL (>45); LDL CHOLESTEROL 75 mg/dL (<100); TRIGLYCERIDES 189 mg/dL (30-150)
[2019-12-09 20:13] LABS: ALANINE AMINOTRANSFERASE 20 U/L (12-78); ASPARTATE AMINOTRANSFERASE 14 U/L (10-37); TOTAL BILIRUBIN 0.7 mg/dL (0.0-1.0)
[2019-12-09 20:17] LABS: ACETAMINOPHEN < 1 ug/mL (1-30); ALCOHOL, BLOOD < 3 mg/dL (<10)
--- NOTE | 2019-12-09 22:49 | NUR ---
Reny matta in ED - 12/09/19 at 2249 by MELI Patient to bed 2 to [facility] for evaluation. Side rails up. Report given to KEIRA Live.
--- NOTE | 2019-12-09 23:20 | NUR ---
79 y/o male brought in by Son for medical clearance from [facility], d/t the facility saying that the current medication the Pt has been on has been stopped. They were told now to send to a [facility] facility to get evaluated and have meds reconciled. Pt to have labs drawn, urine collected, and MRSA swab done. Pt is AAOx1. On RA, VSS. No s/s of distress noted. Will continue to monitor.
[2019-12-09 23:21] LABS: BILIRUBIN,URINE NEGATIVE (NEGATIVE); BLOOD, URINE NEGATIVE (NEGATIVE); CLARITY/URINE CLEAR (CLEAR); COLOR,URINE YELLOW (YELLOW); GLUCOSE,URINE NEGATIVE (NEGATIVE); KETONES,URINE NEGATIVE (NEGATIVE); LEUKOCYTE ESTERASE ,URINE NEGATIVE (NEGATIVE); NITRITE, URINE NEGATIVE (NEGATIVE); PROTEIN URINE NEGATIVE (NEGATIVE)
[2019-12-09 23:32] LABS: BARBITURATE, URINE NEGATIVE (NEG <=200); BENZODIAZEPINE, URINE NEGATIVE (NEG <=150); CANNABINOID, URINE NEGATIVE (NEG <=50); COCAINE, URINE NEGATIVE (NEG <=150); METHAMPHETAMINES SCREEN,URINE NEGATIVE (NEG <=500); OPIATE, URINE NEGATIVE (NEG <=100); PHENCYCLIDINE SCREEN,URINE NEGATIVE (NEG <=25); UR TRICYCLIC ANTIDEPRESSANTS POSITIVE (NEG <=300); URINE AMPHETAMINE NEGATIVE (NEG <=500); URINE METHADONE NEGATIVE (NEG <=200); URINE OXYCODONE SCREEN NEGATIVE (NEG <=100); URINE PROPOXYPHENE SCREEN NEGATIVE (NEG <=300)
--- NOTE | 2019-12-09 23:50 | NUR ---
ER Dr. Hammonds at bedside examining patient.
--- NOTE | 2019-12-10 | NUR ---
Patient to be transferred to [facility] . Is being transferred due to higher level of care. Receiving facility has accepting physician and available space. ER physician has signed transfer form. Patient or responsible libertarian has agreed to transfer and signed form. Patient belongings inventoried and will be sent with patient. Copy of nursing notes, lab reports, EKG, Physicians Orders and X-rays to be sent with patient. Report called to Shameka at receiving facility. Receiving physician is Dr Martin and Dr. Garcia. [facility] ambulance service has been called for transfer. ETA is 0015.
[2019-12-10 00:30] VITALS: BP_SYST 140
== END 2019-12-10 00:30 ==
LOC: SED 19:07
DX: R45.1 Restlessness and agitation (principal); I10 Essential (primary) hypertension; E11.9 Type 2 diabetes mellitus without complications; I25.10 Atherosclerotic heart disease of native coronary artery without angina pectoris; Z88.0 Allergy status to penicillin; Z79.4 Long term (current) use of insulin; Z79.82 Long term (current) use of aspirin; Z79.899 Other long term (current) drug therapy
CPT/HCPCS: 36415; 80053; 80061; 80307; 81003; 83036; 85025; 87081; 99285; G0480; G0481; G0482

== ENCOUNTER 2022-03-08 02:02 | Inpatient (IN) | payer OTHER ==
[~2022-03-08] VITALS: Ht 177.8 cm; Wt 63.0 kg
[2022-03-08] VITALS (7 sets, daily range): BP systolic 98–130
[~2022-03-08 02:02] MED LIST changes: +ACET325T GT; +AMIN30LI2 GT; +ASCO500T20 GT; +ASCO500T20 PO; +CARB1TAB10 GT; +CLON0.1T GT; +HEPA500015 SUBCUT; +INSU100V9 SQ; +LANS30CA53 GT; +LEVA1.2527 INH; +LEVO137T2 GT; +LIP40 GT; +MEMA10TA56 GT; +NOR10 GT; -NOR10 PO; +SSREG SUBCUT; +VALP250S3 GT; +ZINC50TA69 GT
--- NOTE | 2022-03-08 02:02 | NUR ---
Placed in room 3 . Placed on ekg monitor, blood pressure machine and pulse oximeter. To gown for exam. Side rails up. Report given to Karla CROCKETT(priti).
--- NOTE | 2022-03-08 02:03 | NUR ---
ER at bedside examining patient.
--- NOTE | 2022-03-08 02:05 | NUR ---
Pt BIB ACLS ambulance from [facility] due to SOB/Dyspnea. Pt has hx of Dementia, schizophrenia, parkinsons, and DM. Pt placed on 15 lpm via High Flow o2. O2 95% at this time. Pt is a DNR; confirmed with family members via telephone. Addendum: 03/08/22 at 0648 by [email or web address] KEIRA Acosta
[2022-03-08] MEDS ORDERED: NACL 0.9% 1,000 ML IV ONE (02:15)
--- NOTE | 2022-03-08 02:35 | NUR ---
# 20 gauge angiocath placed to R FOREARM. Use of asceptic technique. Opsite placed over site. Blood return noted. Blood for lab drawn from site. Flushed with 10 cc of normal saline. No evidence of infiltration noted. Patient tolerated well. Addendum: 03/08/22 at 0619 by [email or web address] L FOREARM
[2022-03-08 03:10] LABS: BASOPHILS # (AUTO) 0.1 K/uL (0.0-0.2); BASOPHILS % (AUTO) 0.3 % (0.0-2.0); HEMATOCRIT 26.9 % (36-54); HEMOGLOBIN 8.7 g/dL (14.0-18.0); LYMPHOCYTES # (AUTO) 1.2 K/uL (1.0-5.5); LYMPHOCYTES % (AUTO) 2.5 % (20.5-51.5); MEAN CORPUSCULAR HEMOGLOBIN 29 pg (27-31); MEAN CORPUSCULAR HGB CONC 32 % (32-36); MEAN CORPUSCULAR VOLUME 90 fL (79.0-98.0); MONOCYTES # (AUTO) 2.2 K/uL (0.0-1.0); MONOCYTES % (AUTO) 4.8 % (1.7-9.3); NEUTROPHILS # (AUTO) 42.1 K/uL (1.8-7.7); NEUTROPHILS % (AUTO) 92.4 % (40.0-70.0); PLATELET COUNT (AUTO) 548 K/uL (130-430); RED BLOOD CELL COUNT(AUTO) 2.98 MIL/uL (4.2-6.2); RED CELL DISTRIBUTION WIDTH 15.5 % (9.0-15.0)
[2022-03-08 03:30] LABS: WHITE BLOOD COUNT (AUTO) 45.6 K/uL (4.8-10.8)
[2022-03-08 03:40] LABS: ANION GAP 13 (5-15); CALCIUM 8.8 mg/dL (8.4-11.0); CHLORIDE 103 mmol/L (98-107); CREATININE 1.16 mg/dL (0.55-1.30); GLUCOSE 229 mg/dL (70-99); POTASSIUM 4.8 mmol/L (3.5-5.1); SODIUM SERUM 141 mmol/L (136-145); UREA NITROGEN, BLOOD 43 mg/dL (8-21)
--- NOTE | 2022-03-08 03:45 | NUR ---
Patient arrived with crews in place, changed due to standard of practice prior to admission. Inserted # 16 FR Crews catheter with use of sterile technique. Immediate return of 100 cc cloudy urine noted. Bedside drainage bag placed below level of bladder. Urine sample collected and sent to lab. Pt tolerated procedure well.
[2022-03-08 03:50] LABS: CLARITY/URINE SLIGHTLY CLOUDY (CLEAR); COLOR,URINE YELLOW (YELLOW)
[2022-03-08 03:51] LABS: BILIRUBIN,URINE 1+ (NEGATIVE); GLUCOSE,URINE NEGATIVE (NEGATIVE); KETONES,URINE TRACE (NEGATIVE); PROTEIN URINE 1+ (NEGATIVE)
[2022-03-08 03:52] LABS: BLOOD, URINE 1+ (NEGATIVE); LEUKOCYTE ESTERASE ,URINE 2+ (NEGATIVE); NITRITE, URINE NEGATIVE (NEGATIVE)
[2022-03-08 03:56] LABS: ALANINE AMINOTRANSFERASE 40 U/L (12-78); ALBUMIN 1.7 g/dL (3.4-4.8); ASPARTATE AMINOTRANSFERASE 32 U/L (10-37); TOTAL BILIRUBIN 0.4 mg/dL (0.0-1.0)
[2022-03-08] MEDS ORDERED: cefTRIAXone 1 GM IVPB PREMIX 50 ML IV ONE (04:15)
[2022-03-08 04:37] LABS: BACTERIA,URINE FEW /HPF (None Seen); WBC,URINE 80-100 /HPF (0-3)
[2022-03-08 04:38] LABS: MUCUS,URINE 2+ /LPF (None Seen)
[2022-03-08] MEDS ORDERED: VANCOMYCIN HCL 1,000 MG in NS 250 ML IV ONE (05:00)
[2022-03-08] MEDS ORDERED: NOR10 PO (05:20)
--- NOTE | 2022-03-08 05:20 | NUR ---
Admit bed requested Patient will be admitted to care of . Admitted to TELE unit. Diagnosis UROSEPSIS Inpatient (Yes or No) YES Observation (Yes or No) NO Orientation concerns or request close to nursing station (Yes or No) NO Covid Status PENDING On vent or bipap NO Isolation requirements NO Needs a sitter NO From Home (Yes or if No enter name of facility) VIOLAA ARETHA Requires Dialysis (Yes or No) NO Med Rec Completed (Yes of No) YES
[2022-03-08] MEDS ORDERED: VANCOMYCIN HCL 1000 MG/VIAL IV ONE (05:58)
[2022-03-08] MEDS: LevALBUTEROL HCL 1.25 MG/0.5 ML *CONC.* VIAL.NEB (XOPENEX CONC.) INH SCH ×3 (06:00→22:19)
[2022-03-08] MEDS: NACL 0.9% 1,000 ML IV SCH ×2 (06:16→17:18)
--- NOTE | 2022-03-08 06:52 | NUR ---
Spoke to Jolly (daughter) and updated her on status of pt.
--- NOTE | 2022-03-08 08:50 | NUR ---
Patient will be admitted to care of Dr. Martin. Admitted to tele unit. Patient to room 130A. Belongings list completed. Complete and up to date summary report printed. SBAR report given to Nieves CROCKETT at bedside with opportunity for questions. Patient in stable condition.
--- NOTE | 2022-03-08 08:53 | NUR ---
Admission Note Received patient from ER with diagnosis of Urosepsis. Initial Plan of Care unable to discuss with patient.Patient is nonverbal,unable to understand and verbalize teaching. Will call Family to obtain admit information.Four eyes skin check completed with Ebonie CROCKETT. Multiple wounds noted. Photos will be taken. Oriented to room, call light, pain management and safety. Assuming care for patient.
[2022-03-08] MEDS ORDERED: PRAM0.258 GT (11:33)
[2022-03-08] MEDS ORDERED: LOPE2CAP GT (11:33)
[2022-03-08] MEDS ORDERED: METO-442 GT (11:33)
[2022-03-08] MEDS ORDERED: OXYB10TA4 GT (11:33)
[2022-03-08] MEDS ORDERED: SSREG SUBCUT (11:33)
[2022-03-08] MEDS ORDERED: GABA-331 GT (11:33)
[2022-03-08] MEDS ORDERED: SYN50 GT (11:33)
[2022-03-08] MEDS ORDERED: ASA81 GT (11:33)
[2022-03-08] MEDS ORDERED: LEVO137T2 GT (11:33)
[2022-03-08] MEDS ORDERED: MEMA10TA GT (11:33)
[2022-03-08] MEDS ORDERED: VITD2000 GT (11:33)
[2022-03-08] MEDS ORDERED: DONE10TA44 GT (11:33)
[2022-03-08] MEDS ORDERED: MULT-1117 GT (11:33)
[2022-03-08] MEDS ORDERED: INSU100I68 SQ (11:33)
[2022-03-08] MEDS ORDERED: GABA300S PO (11:33)
[2022-03-08] MEDS ORDERED: CLOP75TA32 GT (11:33)
[2022-03-08] MEDS ORDERED: IMIP50TA7 GT (11:33)
[2022-03-08] MEDS: ACETAMINOPHEN 325 MG TABLET PO PRN ×2 (12:57→14:03)
--- NOTE | 2022-03-08 17:23 | NUR ---
Pagejuaquin and spoke to and informed with the low blood pressure earlier but now resolved. Orders received for albumin and insulin sliding scale. MD will see patient.
--- NOTE | 2022-03-08 17:24 | NUR ---
BS145
[2022-03-08] MEDS ORDERED: DEXTROSE 50% JECT 50 ML DISP.SYRIN IVP PRN (17:30)
[2022-03-08] MEDS ORDERED: GLUCOSE (DEXTROSE) ORAL GEL -Adults PO PRN (17:30)
[2022-03-08] MEDS ORDERED: D5W 1,000 ML IV PRN (17:30)
[2022-03-08] MEDS ORDERED: ALBUMIN HUMAN 25% 100 ML IV ONE (17:30)
[2022-03-08] MEDS ORDERED: LOPERAMIDE HCL 2 MG CAPSULE GT SCH (18:30)
--- NOTE | 2022-03-08 18:30 | NUR ---
Dr. Andrewium here to see the patient. Addressed to MD the following concerns: patient has unstageabl wound to coccyx. Wet to dry dressing done and wound consult was placed. Order for wound culture obtained. Informed MD regarding fever earlier and low bp. Orders received and implemented.
--- NOTE | 2022-03-08 19:30 | NUR ---
Report given to lAise and passed on to RN that pt needs to be transferred to an low airloss mattress, wound culture needs to be sent and daughter Maribell requesting to be called for update before 2300. Pt stable at this time.
--- NOTE | 2022-03-08 20:10 | NUR ---
MRSA nares sent to lab.
[2022-03-08] MEDS ORDERED: MEROPENEM 500 MG VIAL IV ONE (20:15)
--- NOTE | 2022-03-08 20:18 | NUR ---
Opening notes Pt eyes open, moans to painful stimuli. O2 5L satting at 94%. IVF infusing at ordered rate L.FA 20G clear and patent. Guerrero catheter draining to gravity with leti urine. GT feeding Glucerna running at 50cc/hr no residual noted. Pt placed on low air loss mattress. Bed low, locked, siderails up x3, alarm on. Contact isolation. To monitor.
[2022-03-08] MEDS ORDERED: cefTRIAXone 1 GM IVPB PREMIX 50 ML IV SCH (21:00)
[2022-03-08] MEDS: MEROPENEM 500 MG in NS 50 ML IV SCH (21:47)
[2022-03-08] MEDS: ATORVASTATIN 20 MG TABLET GT SCH (21:54)
[2022-03-08] MEDS: GABAPENTIN 300 MG CAPSULE GT SCH (21:54)
[2022-03-08] MEDS: PRAMIPEXOLE DI-HCL 0.25 MG TABLET GT SCH (21:54)
[2022-03-08] MEDS: MEMANTINE HCL 5 MG TABLET GT SCH (21:54)
[2022-03-08] MEDS: VALPROIC ACID ORAL SYRUP 250 MG/5 ML UDC GT SCH (21:54)
[2022-03-08] MEDS: DONEPEZIL HCL 5 MG TABLET (ARICEPT) GT SCH (21:55)
[2022-03-08] MEDS: HEPARIN SODIUM,PORCINE 5,000 UNITS/ML VIAL SUBCUT SCH (21:57)
[2022-03-08] MEDS: INSULIN REGULAR, HUMAN 100 UNITS/ML, 10 ML VIAL (humuLIN R) SUBCUT PRN (22:02)
--- NOTE | 2022-03-08 23:25 | NUR ---
Pt's daughter Maribell called and spoke with her dad on the phone.
[2022-03-09] MEDS ORDERED: LEVALBUTEROL HCL 1.25 MG INH SCH
[2022-03-09] MEDS: NACL 0.9% 1,000 ML IV SCH ×3 (00:45→18:53)
[2022-03-09] MEDS: ACETAMINOPHEN 325 MG TABLET PO PRN (00:46)
[2022-03-09] MEDS: LevALBUTEROL HCL 1.25 MG/0.5 ML *CONC.* VIAL.NEB (XOPENEX CONC.) INH SCH ×3 (01:06→14:06)
[2022-03-09 01:22] VITALS: BP_SYST 113
[2022-03-09] MEDS: MEROPENEM 500 MG in NS 50 ML IV SCH ×3 (05:35→22:11)
[2022-03-09] MEDS: cloNIDine HCL 0.1 MG TABLET GT SCH ×3 (06:00→12:00)
[2022-03-09] MEDS ORDERED: LEVOTHYROXINE SODIUM 0.137 MG TABLET GT SCH (06:00)
[2022-03-09] MEDS: LEVOTHYROXINE SODIUM 0.1 MG TABLET GT SCH (06:04)
[2022-03-09] MEDS: VANCOMYCIN HCL 1,000 MG in NS 250 ML IV SCH (06:05)
[2022-03-09] MEDS: HEPARIN SODIUM,PORCINE 5,000 UNITS/ML VIAL SUBCUT SCH ×3 (06:11→22:15)
[2022-03-09] MEDS: INSULIN REGULAR, HUMAN 100 UNITS/ML, 10 ML VIAL (humuLIN R) SUBCUT PRN ×4 (06:11→22:22)
--- NOTE | 2022-03-09 06:11 | NUR ---
Closing notes Pt asleep, opens eyes to pain stimuli. Temp down to 98.5. IVF/IV abx infusing at ordered rate L. FA 20G no s/s infiltration. GT feeding Glucerna 1.2 tolerating well, Guerrero catheter draining to gravity. Bed low, locked, siderails up x3, alarm on. Pt on low air loss mattress. Contact isolation maintained. Endorsed wound culture to AM nurse.
[2022-03-09] MEDS ORDERED: LEVOTHYROXINE SODIUM 0.05 MG TABLET GT SCH (07:00)
--- NOTE | 2022-03-09 07:30 | NUR ---
RECEIVED PT FROM RENATE CROCKETT. ASSUMED ALL CARE.
[2022-03-09 07:56] LABS: HEMATOCRIT 24.9 % (36-54); MEAN CORPUSCULAR HEMOGLOBIN 29 pg (27-31); MEAN CORPUSCULAR HGB CONC 32 % (32-36); MEAN CORPUSCULAR VOLUME 91 fL (79.0-98.0); PLATELET COUNT (AUTO) 435 K/uL (130-430); RED BLOOD CELL COUNT(AUTO) 2.74 MIL/uL (4.2-6.2); RED CELL DISTRIBUTION WIDTH 15.8 % (9.0-15.0); WHITE BLOOD COUNT (AUTO) 24.5 K/uL (4.8-10.8)
[2022-03-09 08:00] VITALS: BP_SYST 109
[2022-03-09 08:33] LABS: ANION GAP 12 (5-15); CALCIUM 8.5 mg/dL (8.4-11.0); CHLORIDE 110 mmol/L (98-107); CREATININE 0.83 mg/dL (0.55-1.30); GLUCOSE 194 mg/dL (70-99); POTASSIUM 3.4 mmol/L (3.5-5.1); SODIUM SERUM 148 mmol/L (136-145); UREA NITROGEN, BLOOD 31 mg/dL (8-21)
[2022-03-09] MEDS ORDERED: NON-FORMULARY MEDICATION (Amino Acids/Protein Hydrolys (Pro-Stat Liquid) 30 ML) GT SCH (09:00)
[2022-03-09] MEDS: CARBIDOPA/LEVODOPA 25/250 MG TABLET GT SCH ×3 (09:49→22:12)
[2022-03-09] MEDS: CHOLECALCIFEROL (VITAMIN D3) 2,000 UNIT TABLET GT SCH (09:49)
[2022-03-09] MEDS: ASCORBIC ACID 500 MG TABLET GT SCH (09:49)
[2022-03-09] MEDS: ASPIRIN 81 MG TAB.CHEW GT SCH (09:49)
[2022-03-09] MEDS: MULTIVITAMINS TAB 1 TABLET GT SCH (09:50)
[2022-03-09] MEDS: CLOPIDOGREL BISULFATE 75 MG TABLET GT SCH (09:50)
[2022-03-09] MEDS: IMIPRAMINE HCL 25 MG GT SCH (09:50)
[2022-03-09] MEDS: ACETAMINOPHEN 325 MG TABLET GT PRN ×2 (09:50→11:36)
[2022-03-09] MEDS: LANSOPRAZOLE 30 MG CAPSULE.DR GT SCH (09:50)
[2022-03-09] MEDS: VALPROIC ACID ORAL SYRUP 250 MG/5 ML UDC GT SCH ×2 (09:51→22:12)
[2022-03-09] MEDS: MEMANTINE HCL 5 MG TABLET GT SCH ×2 (09:51→22:13)
--- NOTE | 2022-03-09 09:52 | NUR ---
TYLENOL 650MG GTUBE GIVEN FOR TEMP 100.6F, COOLING MEASURES IN PLACE.
--- NOTE | 2022-03-09 11:50 | NUR ---
PAGED PAGED DUNIA SEWELL AT [phone] SPOKE WITH VITO.
[2022-03-09] MEDS ORDERED: POTASSIUM CHLORIDE 20 MEQ/PKT PACKET GT ONE ×2 (12:30→16:45)
[2022-03-09 12:32] VITALS: BP_SYST 105
--- NOTE | 2022-03-09 12:44 | NUR ---
DUNIA HUSSEIN AT [phone] SPOKE WITH VINITA.
--- NOTE | 2022-03-09 13:45 | NUR ---
PT NORMOTHERMIC, KCL 40MEQ VIA GTUBE GIVEN FOR k+ 3.4. PT NOTED WITH LOW B/P 90/48 (65). CATAPRES HELD, WILL MAKE DR. RENDON AWARE.
[2022-03-09] MEDS ORDERED: ALBUMIN HUMAN 25% 100 ML IV ONE ×2 (14:29→16:15)
--- NOTE | 2022-03-09 14:32 | NUR ---
Reported to Dr. Martin pt's sbp in the 90s, map 65. Catapres held. Received order to D/C catapres and give albumin 25% 100ml x2 stat. Order carried out pt made aware.
[2022-03-09 14:41] LABS: BAND % (MANUAL) 14 % (0-6); LYMPHOCYTES % (MANUAL) 1 % (20-46)
[2022-03-09 14:42] LABS: BASOPHILS % (MANUAL) 0 % (0-2); EOSINOPHILS % (MANUAL) 0 % (0-7); METAMYELOCYTES % 1 % (0-0); MONOCYTES % (MANUAL) 2 % (0-11)
--- NOTE | 2022-03-09 15:24 | NUR ---
PT IV CATH INFILTRATED. REMOVED INTACT. NEW IV CATH TO RAC 20G PLACED. SITE WNL. DRESSING CDI. MERREM INITIATED LATE DUE TO NO IV ACCESS.
--- NOTE | 2022-03-09 16:24 | NUR ---
PAGED PAGED DUNIA ADHIKARI AT [phone] SPOKE H EXCHANGE.
[2022-03-09] MEDS ORDERED: POTASSIUM CHLORIDE 20 MEQ TAB.PRT.SR GT ONE (16:30)
[2022-03-09] MEDS: MICAFUNGIN SODIUM 100 MG in NS 100 ML IV SCH (17:07)
[2022-03-09 17:37] VITALS: BP_SYST 96
--- NOTE | 2022-03-09 17:49 | NUR ---
REPORTED TO DR. RENDON FIRST DOSE ALBUMIN COMPLETE, SECOND DOSE RUNNING PT IS STILL HYPOTENSIVE B/P 84/51 (65). RECEIVED ORDER TO INCREASE IVF TO 150ML/HOUR. ORDER CARRIED OUT.
--- NOTE | 2022-03-09 19:42 | NUR ---
ENDORSED ALL CARE TO KEIRA DEWITT. INFORMED HER PT HAS BEEN HYPOTENSIVE THROUGH OUT THE DAY. ASKED HER TO PAGE DR. Ybarra AGAIN AND MAKE HIM AWARE PT'S BLOOD CX SHOWS GM POSITIVE COCCI IN CLUSTERS. SHE STATED SHE WILL FOLLOW UP.
--- NOTE | 2022-03-09 19:45 | NUR ---
Lorenzo SAUNDERS 2nd page to Dr. Saniya matthews blood culture Gram + cocci in clusters. Awaiting callback.
[2022-03-09 20:00] VITALS: BP_SYST 107
--- NOTE | 2022-03-09 20:35 | NUR ---
Opening notes Pt awake, eyes open, non-verbal, VSS, no fever Temp 98.1. Pt on simple mask 5L O2 sat 100%. IVF infusing at ordered rate. GT feeding running at 50cc/hr Glucerna 1.2, no residual noted. Contact isolation maintained. Pt repositioned. To monitor.
[2022-03-09] MEDS: PRAMIPEXOLE DI-HCL 0.25 MG TABLET GT SCH (22:12)
[2022-03-09] MEDS: GABAPENTIN 300 MG CAPSULE GT SCH (22:12)
[2022-03-09] MEDS: ATORVASTATIN 20 MG TABLET GT SCH (22:12)
[2022-03-09] MEDS: DONEPEZIL HCL 5 MG TABLET (ARICEPT) GT SCH (22:12)
[2022-03-10 01:26] VITALS: BP_SYST 92
[2022-03-10] MEDS: LevALBUTEROL HCL 1.25 MG/0.5 ML *CONC.* VIAL.NEB (XOPENEX CONC.) INH SCH ×5 (01:37→23:28)
[2022-03-10] MEDS: NACL 0.9% 1,000 ML IV SCH ×4 (02:36→22:05)
[2022-03-10] MEDS: ACETAMINOPHEN 325 MG TABLET PO PRN (04:42)
--- NOTE | 2022-03-10 04:42 | NUR ---
Rounds/Tylenol Pt given Tylenol 650mg via GT for Temp 100.3. Hygiene care provided. Pt had a BM, tolerated GT feeding well. Pt repositioned. Sacral dressing changed with packing. Heraclio heels maintained on heel protector. Pt on low air loss mattress. To monitor.
[2022-03-10] MEDS: MEROPENEM 500 MG in NS 50 ML IV SCH ×2 (05:12→15:30)
[2022-03-10] MEDS: HEPARIN SODIUM,PORCINE 5,000 UNITS/ML VIAL SUBCUT SCH ×3 (05:16→22:03)
[2022-03-10 06:02] LABS: BASOPHILS % (AUTO) 0.2 % (0.0-2.0); EOSINOPHILS # (AUTO) 0.2 K/uL (0.0-0.4); HEMATOCRIT 26.2 % (36-54); HEMOGLOBIN 8.3 g/dL (14.0-18.0); LYMPHOCYTES # (AUTO) 0.8 K/uL (1.0-5.5); LYMPHOCYTES % (AUTO) 4.6 % (20.5-51.5); MEAN CORPUSCULAR HEMOGLOBIN 29 pg (27-31); MEAN CORPUSCULAR HGB CONC 32 % (32-36); MEAN CORPUSCULAR VOLUME 91 fL (79.0-98.0); MONOCYTES % (AUTO) 5.3 % (1.7-9.3); NEUTROPHILS # (AUTO) 16.2 K/uL (1.8-7.7); NEUTROPHILS % (AUTO) 88.9 % (40.0-70.0); PLATELET COUNT (AUTO) 378 K/uL (130-430); RED BLOOD CELL COUNT(AUTO) 2.87 MIL/uL (4.2-6.2); RED CELL DISTRIBUTION WIDTH 15.8 % (9.0-15.0); WHITE BLOOD COUNT (AUTO) 18.3 K/uL (4.8-10.8)
[2022-03-10 06:37] LABS: ANION GAP 7 (5-15); CALCIUM 7.9 mg/dL (8.4-11.0); CHLORIDE 113 mmol/L (98-107); CREATININE 0.71 mg/dL (0.55-1.30); GLUCOSE 161 mg/dL (70-99); POTASSIUM 4.8 mmol/L (3.5-5.1); SODIUM SERUM 147 mmol/L (136-145); UREA NITROGEN, BLOOD 26 mg/dL (8-21)
[2022-03-10] MEDS: VANCOMYCIN HCL 1,000 MG in NS 250 ML IV SCH (06:37)
--- NOTE | 2022-03-10 06:50 | NUR ---
Closing notes Noticed pt eyes closed. O2 sat 60's BP 96/42 HR 120. Pt does not appear to be in distress. Pt is DNR, House sup made aware. Will inform . BS checked 188. IV antibiotic infusing at ordered rate L. FA 20G clear and patent. GT Glucerna running at 60cc/hr. To endorse to AM nurse.
[2022-03-10] MEDS: LEVOTHYROXINE SODIUM 0.1 MG TABLET GT SCH (07:16)
--- NOTE | 2022-03-10 07:22 | NUR ---
CAME ON TO FIND PT'S 02 SAT AT 60%, B/P 88/43 (58). APPLIED NONREBREATHER AT 15LPM, CALLED RT AND THEY ARE AT BEDSIDE NOW. PAGED DR. RENDON TO REPORT. CALLED BOTH DAUGHTERS DENNIS AND BETTY AND MADE THEM AWARE THAT THEIR FATHER IS DECLINING, BETTY STATED THEY WILL COMING FROM [place] TODAY. RECEIVED PT FROM RENATE CROCKETT. WILL ASSUME CARE. R/t PLACED N/C AT 15LPM, COMBINED WITH NONBREATHER AT 15LPM PT IS AT 64%.
--- NOTE | 2022-03-10 07:22 | NUR ---
2ND CALL TO ATTENDING MD DR RENDON, RE: TO INFORM MD OF PT'S DETERIORATING CONDITION.
[2022-03-10 08:00] VITALS: BP_SYST 88
--- NOTE | 2022-03-10 08:08 | NUR ---
PAGED DR. RENDON A SECOND TIME TO MAKE HIM AWARE THE PT IS DECLINING. AWAITING CALL BACK.
--- NOTE | 2022-03-10 09:50 | NUR ---
SPOKE WITH DAUGHTER DENNIS CLAYTON WHO STATED SHE WOULD LIKE TO SPEAK WITH DR. RENDON REGARD COMFORT MEASURES FOR HER FATHER. INFORMED HER DR. RENDON HAS BEED PAGED AND WELL WILL HAVE HIM CALL HER ONCE HE HAS BEEN CONTACTED.
[2022-03-10 10:00] VITALS: BP_SYST 104
--- NOTE | 2022-03-10 10:00 | NUR ---
SCHEDULED MEDS GIVEN. PT GIVEN TYLENOL 650 MG PO FOR TEMP 101.3F, COOLING MEASURES IN PLACE. PT REMAINS ON NONREBREATHER 02 SAT NOW 99%. B/P 101/53 (69).
[2022-03-10] MEDS: CHOLECALCIFEROL (VITAMIN D3) 2,000 UNIT TABLET GT SCH (10:08)
[2022-03-10] MEDS: CLOPIDOGREL BISULFATE 75 MG TABLET GT SCH (10:08)
[2022-03-10] MEDS: ASCORBIC ACID 500 MG TABLET GT SCH (10:08)
[2022-03-10] MEDS: IMIPRAMINE HCL 25 MG GT SCH (10:08)
[2022-03-10] MEDS: MEMANTINE HCL 5 MG TABLET GT SCH ×2 (10:09→21:30)
[2022-03-10] MEDS: ASPIRIN 81 MG TAB.CHEW GT SCH (10:09)
[2022-03-10] MEDS: LANSOPRAZOLE 30 MG CAPSULE.DR GT SCH (10:09)
[2022-03-10] MEDS: ACETAMINOPHEN 325 MG TABLET GT PRN ×2 (10:10→22:22)
[2022-03-10] MEDS: VALPROIC ACID ORAL SYRUP 250 MG/5 ML UDC GT SCH ×2 (10:10→21:30)
[2022-03-10] MEDS: MULTIVITAMINS TAB 1 TABLET GT SCH (10:11)
[2022-03-10] MEDS: CARBIDOPA/LEVODOPA 25/250 MG TABLET GT SCH ×3 (10:15→21:39)
[2022-03-10 12:00] VITALS: BP_SYST 102
[2022-03-10] MEDS: INSULIN REGULAR, HUMAN 100 UNITS/ML, 10 ML VIAL (humuLIN R) SUBCUT PRN ×3 (12:27→22:13)
--- NOTE | 2022-03-10 14:24 | NUR ---
Dietitian Recommendations * Continue Glucerna 1.2 at 50 ml/hr, Free Water Flush: 200 q8h via GT Provides: 1440 kcal/day, 72 gm protein/day, and 1566 ml free water/day Meets 76% of lower end of estimated caloric needs, 76% of lower end of estimated protein needs, and 82% of lower end of estimated fluid needs LP, RD Please refer to Nutrition Assessment for details. Addendum: 03/10/22 at [address] Amended: Links added.
--- NOTE | 2022-03-10 15:08 | NUR ---
WOUND EVALUATION: Patient was seen by the courtesy of Dr. Martin. Thank you, Dr. Martin for the consult. Patient received in a Valery Bed with an Isoflex ROSALIND mattress with low air loss therapy initiated, awake, nonverbal, nonresponsive to verbal commands. Patient is unable to turn in bed independently. Kun Score is a 10. Past Medical History: Diabetes Mellitus, Hypothyroidism, Hypertension, Parkinson's disease, Advanced Dementia, Peripheral Vascular Disease of Lower Extremities. Initial work-up in the emergency room positive for Hypoxemia, Hypotension, Fever, Sepsis, Urinary Tract Infection. Recent Labs: WBC 18.3 (45.6 on 03/08/22), RBC 2.87, hemoglobin 8.3, hematocrit 26.2, sodium 147, chloride 113, BUN 26, creatinine 0.71, glucose 161, POC glucose 258, magnesium 2.2, calcium 7.9, albumin 1.7. Microbiology: Blood culture results x2 in progress. Urine void culture results in progress. MRSA screen results negative. Intrinsic factors that delay wound healing: Diabetes Mellitus, Peripheral Vascular Disease of Lower Extremities, Septic Shock, Candidemia with fungemia, Methicillin-Resistant Staphylococcus Aureus Urinary Tract Infection, Healthcare-Associated Bacterial Pneumonia. Extrinsic factors that delay wound healing: Immobility. Per assessment by Dr. Kothari: "Septic Shock, Candidemia with fungemia, Methicillin-Resistant Staphylococcus Aureus Urinary Tract Infection, Healthcare-Associated Bacterial Pneumonia, Dementia, Diabetes Mellitus. This is a very complex and very complicated patient with multiple comorbidities, coming in with hypotension, possibly due to septic shock. The patient is a DNR per records. Nevertheless, we will broaden antibiotics by adding IV micafungin for fungemia and follow the final ID and susceptibilities of yeast in blood. We will in the meantime add IV vancomycin for MRSA UTI and keep the patient in contact isolation. IV meropenem can be deescalated to IV cefepime in another day or two once the WBC is down. Prognosis poor." Wound Assessment: 1. Sacral-Coccygeal area: Stage IV pressure ulcer, present on admission. Wound bed has 60% black slough, 30% yellow slough, 10% red tissue. Mild odor, scant yellow purulent drainage. Bone is visible. Undermining present from 9-3 o'clock (2.0 cm at 9 o'clock; 1.1 cm at 12 o'clock; 2.0 cm at 3 o'clock. Wound measures 6.3 cm x 7.5 cm x 3.7 cm. Recommend: Cleanse wound with normal saline. Apply moisture barrier cream to periwound. Apply Venelex ointment to wound bed. Pack wound with 1/2 inch iodoform packing strip. Cover with sacral foam dressing. Perform wound care daily, and as needed for dressing soiling or dislodgment. 2. Tip of Glans Penis: Erosion lesion with 90% red non-intact tissue, 10% black scab, present on admission. No odor, no drainage. Recommend: Cleanse involved area with normal saline. Apply Venelex ointment to open area. Wrap with nonadhesive foam dressing. Secure nonadhesive foam dressing with paper tape by taping the dressing to itself, not the skin. Do not wrap dressing too tightly. 3. Left Heel: Blanchable redness. 4. Right Heel: Blanchable redness. Recommend: Elevate, offload and float bilateral heels with 1 pillow lengthwise and each extremity at all times. Do not allow heels to touch bed or other surfaces at any time. Also recommend: Reposition patient side to side only every 2 hours with pillow support and off-load pressure areas with pillows for pressure re-distribution. Offload, elevate and float bilateral heels with 1 pillow lengthwise in each extremity at all times. Perform skin care and monitor skin integrity Q shift. Use moisture barrier cream on buttocks and other moisture susceptible areas QID and as needed for soiling. Place patient on a P500 low air-loss mattress.
[2022-03-10] MEDS: BALSAM PERU/CASTOR OIL 56.7 GM OINT...G. TP SCH (15:26)
[2022-03-10 16:00] VITALS: BP_SYST 98
[2022-03-10] MEDS: MICAFUNGIN SODIUM 100 MG in NS 100 ML IV SCH (16:43)
--- NOTE | 2022-03-10 19:42 | NUR ---
ENDORSED ALL CARE TO KEIRA BUENO. ALL QUESTIONS AND CONCERNS ADDRESSED.
[2022-03-10 20:35] VITALS: BP_SYST 130
[2022-03-10] MEDS: DONEPEZIL HCL 5 MG TABLET (ARICEPT) GT SCH (21:30)
[2022-03-10] MEDS: ATORVASTATIN 20 MG TABLET GT SCH (21:30)
[2022-03-10] MEDS: PRAMIPEXOLE DI-HCL 0.25 MG TABLET GT SCH (21:30)
[2022-03-10] MEDS: GABAPENTIN 300 MG CAPSULE GT SCH (21:30)
[2022-03-11 00:18] VITALS: BP_SYST 94
[2022-03-11] MEDS: NACL 0.9% 1,000 ML IV SCH ×3 (04:19→18:36)
[2022-03-11] MEDS: VANCOMYCIN HCL 1,000 MG in NS 250 ML IV SCH (06:00)
[2022-03-11] MEDS: LEVOTHYROXINE SODIUM 0.1 MG TABLET GT SCH (06:52)
[2022-03-11] MEDS: HEPARIN SODIUM,PORCINE 5,000 UNITS/ML VIAL SUBCUT SCH ×3 (06:53→22:13)
[2022-03-11] MEDS: INSULIN REGULAR, HUMAN 100 UNITS/ML, 10 ML VIAL (humuLIN R) SUBCUT PRN ×4 (07:00→22:25)
[2022-03-11 07:16] LABS: ANION GAP 10 (5-15); CALCIUM 8.2 mg/dL (8.4-11.0); CHLORIDE 118 mmol/L (98-107); CREATININE 0.56 mg/dL (0.55-1.30); GLUCOSE 216 mg/dL (70-99); POTASSIUM 4.3 mmol/L (3.5-5.1); SODIUM SERUM 151 mmol/L (136-145); UREA NITROGEN, BLOOD 21 mg/dL (8-21)
[2022-03-11 07:44] LABS: BASOPHILS % (AUTO) 0.3 % (0.0-2.0); EOSINOPHILS # (AUTO) 0.1 K/uL (0.0-0.4); HEMATOCRIT 24.1 % (36-54); HEMOGLOBIN 7.6 g/dL (14.0-18.0); LYMPHOCYTES # (AUTO) 0.8 K/uL (1.0-5.5); LYMPHOCYTES % (AUTO) 5.9 % (20.5-51.5); MEAN CORPUSCULAR HEMOGLOBIN 29 pg (27-31); MEAN CORPUSCULAR HGB CONC 32 % (32-36); MEAN CORPUSCULAR VOLUME 91 fL (79.0-98.0); MONOCYTES # (AUTO) 0.7 K/uL (0.0-1.0); MONOCYTES % (AUTO) 5.1 % (1.7-9.3); NEUTROPHILS # (AUTO) 12.3 K/uL (1.8-7.7); NEUTROPHILS % (AUTO) 87.7 % (40.0-70.0); PLATELET COUNT (AUTO) 359 K/uL (130-430); RED BLOOD CELL COUNT(AUTO) 2.65 MIL/uL (4.2-6.2); RED CELL DISTRIBUTION WIDTH 15.9 % (9.0-15.0)
[2022-03-11] MEDS: LevALBUTEROL HCL 1.25 MG/0.5 ML *CONC.* VIAL.NEB (XOPENEX CONC.) INH SCH ×3 (07:49→20:39)
[2022-03-11 08:00] VITALS: BP_SYST 131
--- NOTE | 2022-03-11 10:00 | NUR ---
SCHEDULED MEDS GIVEN AND TOLERATED WELL. TYLENOL PRN GIVEN FOR TEMP 101.8. COOLING MEASURES IN PLACE. ASPIRATION AND CONTACT PRECAUTIONS MAINTAINED. DAUGHTER AT BEDSIDE.
[2022-03-11] MEDS: VALPROIC ACID ORAL SYRUP 250 MG/5 ML UDC GT SCH (10:11)
[2022-03-11] MEDS: LANSOPRAZOLE 30 MG CAPSULE.DR GT SCH (10:11)
[2022-03-11] MEDS: ASCORBIC ACID 500 MG TABLET GT SCH (10:12)
[2022-03-11] MEDS: CLOPIDOGREL BISULFATE 75 MG TABLET GT SCH (10:12)
[2022-03-11] MEDS: MEMANTINE HCL 5 MG TABLET GT SCH (10:12)
[2022-03-11] MEDS: ACETAMINOPHEN 325 MG TABLET GT PRN (10:12)
[2022-03-11] MEDS: IMIPRAMINE HCL 25 MG GT SCH (10:13)
[2022-03-11] MEDS: ASPIRIN 81 MG TAB.CHEW GT SCH (10:13)
[2022-03-11] MEDS: MULTIVITAMINS TAB 1 TABLET GT SCH (10:13)
[2022-03-11] MEDS: CHOLECALCIFEROL (VITAMIN D3) 2,000 UNIT TABLET GT SCH (10:13)
[2022-03-11] MEDS: CARBIDOPA/LEVODOPA 25/250 MG TABLET GT SCH (10:13)
[2022-03-11] MEDS: BALSAM PERU/CASTOR OIL 56.7 GM OINT...G. TP SCH (10:15)
--- NOTE | 2022-03-11 10:43 | NUR ---
INFORMED KEIRA BLACKWOOD THAT THE PATENT IS OFF THE TELE MONITOR
[2022-03-11 11:40] VITALS: BP_SYST 115
--- NOTE | 2022-03-11 15:00 | NUR ---
WOUND CARE PREFORMED. PT GIVEN PARTIAL BED BATH, PERINEAL/NICOLE CATH CARE, LINEN AND GOWN CHANGE. ORAL CARE PREFORMED. ASPIRATION AND CONTACT PRECAUTIONS MAINTAINED.
[2022-03-11 16:32] VITALS: BP_SYST 119
[2022-03-11] MEDS: MICAFUNGIN SODIUM 100 MG in NS 100 ML IV SCH (16:49)
--- NOTE | 2022-03-11 18:44 | NUR ---
RECEIVED PT FROM KEIRA BUENO. ASSUMED ALL CARE.
--- NOTE | 2022-03-11 19:44 | NUR ---
PAGED: PAGED DR SPIVEY REGARDING ORDERS SPOKE WITH SOLOMON
--- NOTE | 2022-03-11 19:48 | NUR ---
ENDORSED PT TO KEIRA FRANCIS. HE IS AWARE THAT PT BLOOD CX POSITIVE FOR MRSA AND DR. Ybarra HAS BEEN PAGED AND AWAITING A CALL BACK.
--- NOTE | 2022-03-11 20:25 | NUR ---
SECOND PAGE PAGED DR. SPIVEY REGARDING ORDERS SPOKE WITH VERENICE
[2022-03-11] MEDS: PRAMIPEXOLE DI-HCL 0.25 MG TABLET GT SCH (22:09)
[2022-03-11] MEDS: GABAPENTIN 300 MG CAPSULE GT SCH (22:09)
[2022-03-12] MEDS: NACL 0.9% 1,000 ML IV SCH ×3 (01:34→21:16)
[2022-03-12] MEDS: VALPROIC ACID ORAL SYRUP 250 MG/5 ML UDC GT SCH ×3 (01:38→21:41)
[2022-03-12 02:16] VITALS: BP_SYST 163
[2022-03-12] MEDS: LevALBUTEROL HCL 1.25 MG/0.5 ML *CONC.* VIAL.NEB (XOPENEX CONC.) INH SCH ×4 (02:35→23:49)
[2022-03-12] MEDS: LEVOTHYROXINE SODIUM 0.1 MG TABLET GT SCH (06:35)
[2022-03-12] MEDS: VANCOMYCIN HCL 1,000 MG in NS 250 ML IV SCH (06:35)
[2022-03-12] MEDS: INSULIN REGULAR, HUMAN 100 UNITS/ML, 10 ML VIAL (humuLIN R) SUBCUT PRN ×2 (06:37→21:46)
[2022-03-12] MEDS: HEPARIN SODIUM,PORCINE 5,000 UNITS/ML VIAL SUBCUT SCH ×3 (06:38→21:45)
[2022-03-12 06:53] LABS: ANION GAP 8 (5-15); CALCIUM 7.6 mg/dL (8.4-11.0); CHLORIDE 115 mmol/L (98-107); CREATININE 0.54 mg/dL (0.55-1.30); GLUCOSE 222 mg/dL (70-99); POTASSIUM 3.6 mmol/L (3.5-5.1); SODIUM SERUM 149 mmol/L (136-145); UREA NITROGEN, BLOOD 18 mg/dL (8-21)
[2022-03-12 06:55] LABS: BASOPHILS % (AUTO) 0.3 % (0.0-2.0); EOSINOPHILS # (AUTO) 0.2 K/uL (0.0-0.4); EOSINOPHILS % (AUTO) 1.5 % (0.0-4.0); HEMATOCRIT 23.7 % (36-54); HEMOGLOBIN 7.8 g/dL (14.0-18.0); LYMPHOCYTES # (AUTO) 1.1 K/uL (1.0-5.5); MEAN CORPUSCULAR HEMOGLOBIN 30 pg (27-31); MEAN CORPUSCULAR HGB CONC 33 % (32-36); MEAN CORPUSCULAR VOLUME 90 fL (79.0-98.0); MONOCYTES # (AUTO) 0.8 K/uL (0.0-1.0); MONOCYTES % (AUTO) 6.2 % (1.7-9.3); NEUTROPHILS # (AUTO) 10.6 K/uL (1.8-7.7); PLATELET COUNT (AUTO) 381 K/uL (130-430); RED BLOOD CELL COUNT(AUTO) 2.64 MIL/uL (4.2-6.2); RED CELL DISTRIBUTION WIDTH 15.7 % (9.0-15.0); WHITE BLOOD COUNT (AUTO) 12.8 K/uL (4.8-10.8)
[2022-03-12 08:00] VITALS: BP_SYST 145
[2022-03-12] MEDS: LANSOPRAZOLE 30 MG CAPSULE.DR GT SCH (09:35)
[2022-03-12] MEDS: CLOPIDOGREL BISULFATE 75 MG TABLET GT SCH (09:36)
[2022-03-12] MEDS: CHOLECALCIFEROL (VITAMIN D3) 2,000 UNIT TABLET GT SCH (09:36)
[2022-03-12] MEDS: MULTIVITAMINS TAB 1 TABLET GT SCH (09:37)
[2022-03-12] MEDS: ASPIRIN 81 MG TAB.CHEW GT SCH (09:40)
[2022-03-12] MEDS: BALSAM PERU/CASTOR OIL 56.7 GM OINT...G. TP SCH (15:00)
[2022-03-12 16:00] VITALS: BP_SYST 123
[2022-03-12] MEDS: IMIPRAMINE HCL 25 MG GT SCH (16:07)
[2022-03-12] MEDS: ASCORBIC ACID 500 MG TABLET GT SCH (16:07)
[2022-03-12] MEDS: MICAFUNGIN SODIUM 100 MG in NS 100 ML IV SCH (16:10)
[2022-03-12 20:00] VITALS: BP_SYST 138
[2022-03-12] MEDS: PRAMIPEXOLE DI-HCL 0.25 MG TABLET GT SCH (21:40)
[2022-03-12] MEDS: GABAPENTIN 300 MG CAPSULE GT SCH (21:40)
[2022-03-13 00:08] VITALS: BP_SYST 144
[2022-03-13] MEDS: LevALBUTEROL HCL 1.25 MG/0.5 ML *CONC.* VIAL.NEB (XOPENEX CONC.) INH SCH ×4 (01:13→23:36)
[2022-03-13] MEDS: NACL 0.9% 1,000 ML IV SCH ×3 (03:49→23:56)
[2022-03-13] MEDS: LEVOTHYROXINE SODIUM 0.1 MG TABLET GT SCH (06:12)
[2022-03-13] MEDS: INSULIN REGULAR, HUMAN 100 UNITS/ML, 10 ML VIAL (humuLIN R) SUBCUT PRN ×2 (06:18→22:30)
[2022-03-13] MEDS: HEPARIN SODIUM,PORCINE 5,000 UNITS/ML VIAL SUBCUT SCH ×3 (06:19→22:22)
[2022-03-13] MEDS: VANCOMYCIN HCL 1,000 MG in NS 250 ML IV SCH (06:22)
--- NOTE | 2022-03-13 07:02 | NUR ---
closing note patient was none responsive other then to pain throughout the shift. tolerated medication and g-tube feeding with no issues. patient required suction 3 times during the with white/ yellow mucus noted. oral care completed. wound care completed. bed was placed in the lowest position with the side rails up.
[2022-03-13 07:09] LABS: BASOPHILS # (AUTO) 0.1 K/uL (0.0-0.2); BASOPHILS % (AUTO) 0.4 % (0.0-2.0); EOSINOPHILS # (AUTO) 0.2 K/uL (0.0-0.4); EOSINOPHILS % (AUTO) 1.7 % (0.0-4.0); HEMATOCRIT 23.8 % (36-54); HEMOGLOBIN 7.7 g/dL (14.0-18.0); LYMPHOCYTES # (AUTO) 1.3 K/uL (1.0-5.5); LYMPHOCYTES % (AUTO) 9.1 % (20.5-51.5); MEAN CORPUSCULAR HEMOGLOBIN 29 pg (27-31); MEAN CORPUSCULAR HGB CONC 32 % (32-36); MEAN CORPUSCULAR VOLUME 89 fL (79.0-98.0); MONOCYTES % (AUTO) 6.7 % (1.7-9.3); NEUTROPHILS # (AUTO) 12.1 K/uL (1.8-7.7); NEUTROPHILS % (AUTO) 82.1 % (40.0-70.0); PLATELET COUNT (AUTO) 423 K/uL (130-430); RED BLOOD CELL COUNT(AUTO) 2.67 MIL/uL (4.2-6.2); RED CELL DISTRIBUTION WIDTH 15.4 % (9.0-15.0); WHITE BLOOD COUNT (AUTO) 14.8 K/uL (4.8-10.8)
[2022-03-13 07:24] LABS: ANION GAP 7 (5-15); CALCIUM 7.7 mg/dL (8.4-11.0); CHLORIDE 109 mmol/L (98-107); CREATININE 0.52 mg/dL (0.55-1.30); GLUCOSE 214 mg/dL (70-99); POTASSIUM 3.4 mmol/L (3.5-5.1); SODIUM SERUM 143 mmol/L (136-145); UREA NITROGEN, BLOOD 15 mg/dL (8-21)
[2022-03-13 07:42] LABS: TOTAL IRON BIND. CAPACITY 103 ug/dL (250-450)
[2022-03-13] MEDS: IMIPRAMINE HCL 25 MG GT SCH (09:00)
[2022-03-13] MEDS: MULTIVITAMINS TAB 1 TABLET GT SCH (09:48)
[2022-03-13] MEDS: VALPROIC ACID ORAL SYRUP 250 MG/5 ML UDC GT SCH ×2 (09:49→22:20)
[2022-03-13] MEDS: LANSOPRAZOLE 30 MG CAPSULE.DR GT SCH (09:49)
[2022-03-13] MEDS: ASPIRIN 81 MG TAB.CHEW GT SCH (09:49)
[2022-03-13] MEDS: CLOPIDOGREL BISULFATE 75 MG TABLET GT SCH (09:49)
[2022-03-13] MEDS: ASCORBIC ACID 500 MG TABLET GT SCH (09:50)
[2022-03-13] MEDS: CHOLECALCIFEROL (VITAMIN D3) 2,000 UNIT TABLET GT SCH (09:50)
[2022-03-13] MEDS: BALSAM PERU/CASTOR OIL 56.7 GM OINT...G. TP SCH (09:51)
--- NOTE | 2022-03-13 10:50 | NUR ---
KEIRA WOODARD WAS CALLED 2 X TO 3 TIMES, PT IS OFF MONITOR TOO.
--- NOTE | 2022-03-13 11:43 | NUR ---
Discharge Planning: DCP faxed pt referral to [facility]#[phone] DCP to follow up
[2022-03-13 12:49] VITALS: BP_SYST 132
[2022-03-13 16:54] VITALS: BP_SYST 127
[2022-03-13] MEDS: MICAFUNGIN SODIUM 100 MG in NS 100 ML IV SCH (18:41)
[2022-03-13 20:00] VITALS: BP_SYST 139
[2022-03-13] MEDS: PRAMIPEXOLE DI-HCL 0.25 MG TABLET GT SCH (22:20)
[2022-03-13] MEDS: GABAPENTIN 300 MG CAPSULE GT SCH (22:20)
[2022-03-14] MEDS: LevALBUTEROL HCL 1.25 MG/0.5 ML *CONC.* VIAL.NEB (XOPENEX CONC.) INH SCH ×4 (06:01→20:07)
[2022-03-14] MEDS: LEVOTHYROXINE SODIUM 0.1 MG TABLET GT SCH (06:14)
[2022-03-14] MEDS: HEPARIN SODIUM,PORCINE 5,000 UNITS/ML VIAL SUBCUT SCH ×3 (06:23→21:24)
[2022-03-14] MEDS: INSULIN REGULAR, HUMAN 100 UNITS/ML, 10 ML VIAL (humuLIN R) SUBCUT PRN ×4 (06:23→21:20)
[2022-03-14] MEDS: VANCOMYCIN HCL 1,000 MG in NS 250 ML IV SCH (06:31)
[2022-03-14] MEDS: NACL 0.9% 1,000 ML IV SCH ×3 (06:36→21:05)
[2022-03-14 08:00] VITALS: BP_SYST 128
[2022-03-14 09:39] VITALS: BP_SYST 139
[2022-03-14] MEDS: ASPIRIN 81 MG TAB.CHEW GT SCH (09:39)
[2022-03-14] MEDS: VALPROIC ACID ORAL SYRUP 250 MG/5 ML UDC GT SCH ×2 (09:39→21:05)
[2022-03-14] MEDS: CLOPIDOGREL BISULFATE 75 MG TABLET GT SCH (09:39)
[2022-03-14] MEDS: LANSOPRAZOLE 30 MG CAPSULE.DR GT SCH (09:40)
[2022-03-14] MEDS: CHOLECALCIFEROL (VITAMIN D3) 2,000 UNIT TABLET GT SCH (09:40)
[2022-03-14] MEDS: IMIPRAMINE HCL 25 MG GT SCH (09:40)
[2022-03-14] MEDS: MULTIVITAMINS TAB 1 TABLET GT SCH (09:40)
[2022-03-14] MEDS: ASCORBIC ACID 500 MG TABLET GT SCH (09:41)
[2022-03-14] MEDS: BALSAM PERU/CASTOR OIL 56.7 GM OINT...G. TP SCH (09:42)
--- NOTE | 2022-03-14 11:34 | NUR ---
Discharge Planning: SANTOS followed up with pt referral to [facility] P#[phone] patient will go to 17, JOSEPHP made CM aware. JOSEPHP arranged transport with [facility] [phone] BLS. Pending DC order. Patient packet taken to nurse station. Addendum: 03/14/22 at 1607 by Jana Olivera DP SANTOS spoke to Bryant the lan administrator at [facility] and IV meds order was received. Per Bryant pt will be accepted, JOSEPHP made nurse and CM aware. Cm reached out to doctor and DC order pending. SANTOS arranged transport with [facility] [phone] BLS on Will Call. Patient packet taken to nurse station.
[2022-03-14 12:17] VITALS: BP_SYST 135
--- NOTE | 2022-03-14 12:30 | NUR ---
CRITICAL LAB: from Laboratory called with critical lab value blood culture positve for MRSA. Medical record number and patient name verified. Read back of values done. notified of value.orders given at this time.pt is cleared to d/c per ID consult ,and continue IV antibiotic for 2 weeks.
--- NOTE | 2022-03-14 14:00 | NUR ---
called and notified pt has bed in [facility] and cleared by ID for d/c.yet concerned if SNF able to accept pt with IV antibiotic vanco and mycamine called bilingual patient support caseworker elvin per requests to follow up with SNF if they can accept pt with vanco and mycamine.
[2022-03-14 14:14] LABS: BASOPHILS # (AUTO) 0.1 K/uL (0.0-0.2); BASOPHILS % (AUTO) 0.5 % (0.0-2.0); EOSINOPHILS # (AUTO) 0.3 K/uL (0.0-0.4); EOSINOPHILS % (AUTO) 1.9 % (0.0-4.0); HEMOGLOBIN 7.1 g/dL (14.0-18.0); LYMPHOCYTES # (AUTO) 1.6 K/uL (1.0-5.5); LYMPHOCYTES % (AUTO) 11.9 % (20.5-51.5); MEAN CORPUSCULAR HEMOGLOBIN 29 pg (27-31); MEAN CORPUSCULAR HGB CONC 33 % (32-36); MEAN CORPUSCULAR VOLUME 89 fL (79.0-98.0); MONOCYTES # (AUTO) 0.7 K/uL (0.0-1.0); MONOCYTES % (AUTO) 5.3 % (1.7-9.3); NEUTROPHILS # (AUTO) 10.8 K/uL (1.8-7.7); NEUTROPHILS % (AUTO) 80.4 % (40.0-70.0); PLATELET COUNT (AUTO) 387 K/uL (130-430); RED BLOOD CELL COUNT(AUTO) 2.46 MIL/uL (4.2-6.2); RED CELL DISTRIBUTION WIDTH 15.5 % (9.0-15.0); WHITE BLOOD COUNT (AUTO) 13.4 K/uL (4.8-10.8)
[2022-03-14 14:30] LABS: HEMATOCRIT 21.8 % (36-54)
[2022-03-14 14:32] LABS: ANION GAP 4 (5-15); CALCIUM 7.3 mg/dL (8.4-11.0); CHLORIDE 109 mmol/L (98-107); CREATININE 0.57 mg/dL (0.55-1.30); GLUCOSE 212 mg/dL (70-99); POTASSIUM 3.3 mmol/L (3.5-5.1); SODIUM SERUM 141 mmol/L (136-145); UREA NITROGEN, BLOOD 14 mg/dL (8-21)
[2022-03-14] MEDS: MICAFUNGIN SODIUM 100 MG in NS 100 ML IV SCH (15:38)
[2022-03-14 16:00] VITALS: BP_SYST 137
--- NOTE | 2022-03-14 19:32 | NUR ---
Opening note Received SBAR report from KEIRA Madrid. Patient is resting on ROSALIND mattress, with eyes open. Patient is in no distress, non labored breathing on 4L NC. IVF infusing via IV to LAC. Tube feeding is running as ordered. Guerrero catheter drainage bag to gravity. Bed is locked in lowest position, side rails up, and bed alarm on.
[2022-03-14 20:00] VITALS: BP_SYST 140
--- NOTE | 2022-03-14 20:58 | NUR ---
Paged Dr. Martin
[2022-03-14] MEDS: PRAMIPEXOLE DI-HCL 0.25 MG TABLET GT SCH (21:05)
[2022-03-14] MEDS: GABAPENTIN 300 MG CAPSULE GT SCH (21:06)
--- NOTE | 2022-03-14 21:26 | NUR ---
HIGH ALERT NOTE: Called back at [phone] identified within the medical roster to verify physician authenticity. (regarding K-dur order)
[2022-03-14] MEDS ORDERED: POTASSIUM CHLORIDE 20 MEQ TAB.PRT.SR GT ONE (21:30)
[2022-03-14] MEDS ORDERED: SOD FERRIC GLUC COMPLEX/SUC 125 MG in NS 100 ML IV SCH (22:45)
[2022-03-15 00:35] VITALS: BP_SYST 138
[2022-03-15] MEDS: LevALBUTEROL HCL 1.25 MG/0.5 ML *CONC.* VIAL.NEB (XOPENEX CONC.) INH SCH ×4 (02:05→20:11)
[2022-03-15] MEDS ORDERED: SOD FERRIC GLUC COMPLEX/SUC 62.5 MG/5 ML VIAL (FERRLECIT) IV ONE (02:26)
[2022-03-15] MEDS: NACL 0.9% 1,000 ML IV SCH (02:33)
--- NOTE | 2022-03-15 05:30 | NUR ---
wound care late entry d/t patient care wound care done, updated notes in MST charting, pictures taken
[2022-03-15] MEDS ORDERED: VANCOMYCIN HCL 1,250 MG in NS 250 ML IV SCH (06:00)
[2022-03-15] MEDS: LEVOTHYROXINE SODIUM 0.1 MG TABLET GT SCH (06:19)
[2022-03-15] MEDS: HEPARIN SODIUM,PORCINE 5,000 UNITS/ML VIAL SUBCUT SCH ×2 (06:25→14:05)
[2022-03-15 06:48] LABS: BASOPHILS # (AUTO) 0.1 K/uL (0.0-0.2); BASOPHILS % (AUTO) 1.2 % (0.0-2.0); EOSINOPHILS # (AUTO) 0.4 K/uL (0.0-0.4); EOSINOPHILS % (AUTO) 3.1 % (0.0-4.0); HEMATOCRIT 22.9 % (36-54); HEMOGLOBIN 7.6 g/dL (14.0-18.0); LYMPHOCYTES % (AUTO) 15.8 % (20.5-51.5); MEAN CORPUSCULAR HEMOGLOBIN 30 pg (27-31); MEAN CORPUSCULAR HGB CONC 33 % (32-36); MEAN CORPUSCULAR VOLUME 90 fL (79.0-98.0); MONOCYTES # (AUTO) 0.8 K/uL (0.0-1.0); MONOCYTES % (AUTO) 6.1 % (1.7-9.3); NEUTROPHILS # (AUTO) 9.5 K/uL (1.8-7.7); PLATELET COUNT (AUTO) 405 K/uL (130-430); RED BLOOD CELL COUNT(AUTO) 2.55 MIL/uL (4.2-6.2); RED CELL DISTRIBUTION WIDTH 15.6 % (9.0-15.0); WHITE BLOOD COUNT (AUTO) 12.9 K/uL (4.8-10.8)
[2022-03-15 07:08] LABS: ANION GAP 3 (5-15); CALCIUM 7.4 mg/dL (8.4-11.0); CHLORIDE 108 mmol/L (98-107); CREATININE 0.51 mg/dL (0.55-1.30); GLUCOSE 167 mg/dL (70-99); POTASSIUM 3.8 mmol/L (3.5-5.1); SODIUM SERUM 138 mmol/L (136-145); UREA NITROGEN, BLOOD 9 mg/dL (8-21)
[2022-03-15 08:00] VITALS: BP_SYST 160
[2022-03-15 08:03] LABS: NEUTROPHILS % (AUTO) 73.8 % (40.0-70.0)
[2022-03-15] MEDS: VALPROIC ACID ORAL SYRUP 250 MG/5 ML UDC GT SCH (09:47)
[2022-03-15] MEDS: ASPIRIN 81 MG TAB.CHEW GT SCH (09:48)
[2022-03-15] MEDS: IMIPRAMINE HCL 25 MG GT SCH (09:48)
[2022-03-15] MEDS: LANSOPRAZOLE 30 MG CAPSULE.DR GT SCH (09:48)
[2022-03-15] MEDS: MULTIVITAMINS TAB 1 TABLET GT SCH (09:48)
[2022-03-15] MEDS: CHOLECALCIFEROL (VITAMIN D3) 2,000 UNIT TABLET GT SCH (09:48)
[2022-03-15] MEDS: CLOPIDOGREL BISULFATE 75 MG TABLET GT SCH (09:48)
[2022-03-15] MEDS: ASCORBIC ACID 500 MG TABLET GT SCH (09:48)
[2022-03-15] MEDS: BALSAM PERU/CASTOR OIL 56.7 GM OINT...G. TP SCH (09:49)
[2022-03-15] MEDS: INSULIN REGULAR, HUMAN 100 UNITS/ML, 10 ML VIAL (humuLIN R) SUBCUT PRN ×2 (12:13→18:16)
[2022-03-15 12:59] VITALS: BP_SYST 139
--- NOTE | 2022-03-15 13:56 | NUR ---
Dietitian Recommendations * Continue Glucerna 1.2 at 50 ml/hr, Free Water Flush: 200 q8h via GT * Lorne BID Provides: 1600 kcal/day, 77 gm protein/day, and 1566 ml free water/day Meets 84% of lower end of estimated caloric needs, 81% of lower end of estimated protein needs, and 82% of lower end of estimated fluid needs Please refer to nutrition f/u for details. Signed: 03/15/22 at 1357 by Sofie FARIA <Co-Signature Required> Co-Signed: 03/15/22 at [address]
--- NOTE | 2022-03-15 13:56 | NUR ---
Nutrition F/U Admitting Diagnosis Urosepsis Reviewed Pertinent Medical/Surgical Hx Medical Record Pt RN Medical History Comment: PMH: advanced dementia, DM, Parkinson's Dz, and recurrent UTI per physician notes Pt was also found w/ septic shock per physician notes SARS-CoV-2 Ag (Rapid) Negative 03/08 Subjective Information Pt due for moderate risk F/U. Per EMR review, pt on 4 L NC. Kun score 13, several wounds noted, 3+ pitting edema noted on bilateral hand, stage 4 decubitus ulcer noted on coccyx. Last BM x1 today. DI visited pt at bedside and witnessed TF running at goal rate. DI spoke to pts RN who reports pt is tolerating TF well. Pt is meeting nutritional needs. Current Diet Order/Nutrition Support Glucerna 1.2 at 50 ml/hr, Free Water Flush: 200 q8h via GT x7 day Patient/Significant Other Unable To Verbalize Education Provided Not Indicated Pertinent Medications zinc, MVI, VIT D3, VIT C, synthroid, SSI, vancomycin, ferric sodium Pertinent Labs Cr 0.51 L, BG 167 H, POC BG 149 H, WBC 12.9 H Height (Feet) 5 feet Height (Inches) 10.00 inches Weight (Pounds) 139 pounds no changes since 03/08 Weight (Calculated Kilograms) 63.345403 kilograms Body Mass Index 19.94 kg/m2 %IBW 84 Temple/Adjusted Body Weight 166#/75.5 kg Recent Weight Change Unable to verify Weight Status Underweight Food Allergies Unable to verify Usual Diet At Home Unable to verify (*ongoing) Estimated Energy Expenditure (kcals/day) 3581-2470 (30-35 kcal/kg CBW d/t sepsis, wound healing) (*ongoing) Estimated Protein Required (g/day) 95-126 (1.5-2 gm/kg CBW d/t sepsis, wound healing) (*ongoing) Estimated Fluid Required (l/day) 1.9-2.2 (1 ml/kcal/day for maintenance) Problem/Etiology/Signs/Symptoms Increased nutritional needs R/T metabolic demands AEB estimated nutritional requirements for sepsis. (*ongoing) Expected Outcomes/Goals - Monitor tolerance to EN support w/ goal of pt meeting >75% of estimated nutritional needs, labs trending WNL, normal GI function, and skin integrity/wt maintenance Dietitian Recommendations * Continue Glucerna 1.2 at 50 ml/hr, Free Water Flush: 200 q8h via GT * Lorne BID Provides: 1600 kcal/day, 77 gm protein/day, and 1566 ml free water/day Meets 84% of lower end of estimated caloric needs, 81% of lower end of estimated protein needs, and 82% of lower end of estimated fluid needs Follow Up Low Risk: F/U in 7 days Signed: 03/15/22 at 1356 by Sofie FARIA <Co-Signature Required> Co-Signed: 03/15/22 at [address]
[2022-03-15] MEDS: MICAFUNGIN SODIUM 100 MG in NS 100 ML IV SCH (15:48)
[2022-03-15 16:01] VITALS: BP_SYST 142
--- NOTE | 2022-03-15 18:30 | NUR ---
[facility] CALLED ME AT 193 I SPOKE WITH LIBORIO JEREZ SHE SAID HER CREW ARE RUNNING LATE SO CRYSTAL REPORT DEVELOPER TIME WILL BE BETWEEN 1929 TO 1999 I INFORMED THE DAY AND NIGHT RN'S
--- NOTE | 2022-03-15 19:07 | NUR ---
pt confused,nonverbal on tube feeding glucerna 1.2 runs @ 50cc per hr via GT no residual per GT.give IV antibiotic,IV site in left arm remains patent and intact vss,sinus tachy hr 100-119,on O2 2L/NC,sat 96%total care provided,d/c back to [facility] per order.report called and given to nurse robles by phone called [facility] @ [phone] and spoke to dilma,she said ambulance on the way for 45 min.endorsed to warehouse shift supervisor nurse.
--- NOTE | 2022-03-15 19:20 | NUR ---
Opening note Received patient resting on ROSALIND mattress, with eyes open. Patient is in no distress, non labored breathing on 2L NC. IV to LAC is SL. GTube feeding is running as ordered. Guerrero catheter drainage bag to gravity. Bed is locked in lowest position, side rails up, and bed alarm on.
[2022-03-15 20:00] VITALS: BP_SYST 148
--- NOTE | 2022-03-15 20:53 | NUR ---
CALLED [facility] I SPOKE WITH LIBORIO WALLPAPER CONSULTANT SHE SAID AMBULANCE IS ABOUT 10 TO 15 MINUTES FROM NOW TO ARRIVE TO OUR FLOOR
--- NOTE | 2022-03-15 21:25 | NUR ---
PT TRANSFERRED Report given by day Shift nurse to [facility]. Transfer packet with Transfer Orders and Medication Reconciliation form given to SAY Mims with report. Exitcare provided. [facility] ID band removed, replaced with ID band with pt's name and . IV catheter to LAC remains in place. Gtube is clamped, crews catheter is in place. No belongings sent with patient. Patient left floor via gurney escorted by EMT in no distress.
== END 2022-03-15 21:35 | DRG 871 ==
LOC: SED 02:02 → STU 04:49
PROVIDERS: ADMIT Family Medicine; ATTEND Family Medicine
PROC: 5A0935A Assistance with Respiratory Ventilation, Less than 24 Consecutive Hours, High Flow/Velocity Cannula (ICD-10-PCS; principal; 2022-03-08)
DX: A41.02 Sepsis due to Methicillin resistant Staphylococcus aureus (principal); L89.154 Pressure ulcer of sacral region, stage 4; J15.9 Unspecified bacterial pneumonia; R65.21 Severe sepsis with septic shock; N39.0 Urinary tract infection, site not specified; B49 Unspecified mycosis; Z66 Do not resuscitate; E86.0 Dehydration; E03.9 Hypothyroidism, unspecified; G20 Parkinson's disease; I25.10 Atherosclerotic heart disease of native coronary artery without angina pectoris; F02.80 Dementia in other diseases classified elsewhere, unspecified severity, without behavioral disturbance, psychotic disturbance, mood disturbance, and anxiety; F20.9 Schizophrenia, unspecified; I10 Essential (primary) hypertension; E11.51 Type 2 diabetes mellitus with diabetic peripheral angiopathy without gangrene; D50.9 Iron deficiency anemia, unspecified; G40.909 Epilepsy, unspecified, not intractable, without status epilepticus; Z20.822 Contact with and (suspected) exposure to COVID-19; Y95 Nosocomial condition; R09.02 Hypoxemia; Z87.440 Personal history of urinary (tract) infections; Z88.0 Allergy status to penicillin; Z79.899 Other long term (current) drug therapy; Z79.82 Long term (current) use of aspirin; Z95.5 Presence of coronary angioplasty implant and graft; Z86.73 Personal history of transient ischemic attack (TIA), and cerebral infarction without residual deficits; Z86.16 Personal history of COVID-19; Z87.01 Personal history of pneumonia (recurrent); Z93.1 Gastrostomy status
CPT/HCPCS: 36415; 71045; 80048; 80053; 80202; 81000; 82607; 82728; 82746; 82962; 83540; 83550; 83605; 83735; 85007; 85025; 85027; 87040; 87070-TC; 87081; 87086; 87186-TC; 94640; 94760; 96374; 96375; 99291; G0378; J0696; J1644; J1815; J2185; J2248; J2916; J3370; J7050; J7612

== ENCOUNTER 2022-03-17 07:46 | Inpatient (IN) | payer OTHER ==
[~2022-03-17] VITALS: Ht 182.9 cm; Wt 63.5 kg
[~2022-03-17 07:46] MED LIST changes: +ASA81 GT; -ASA81 PO; -ASCO500T20 PO; -CLOP75TA2 PO; +CLOP75TA32 GT; +DONE10TA44 GT; -DONE10TA44 PO; -ESOM40CA PO; -EXEN2VIA SQ; -FOLI-59 PO; +GABA-331 GT; -IMIP50TA2 PO; +IMIP50TA7 GT; +INSU100I68 SQ; -INSU100V11 SQ; -INSU100V26 SUBCUT; -INSU100V9 SQ; -INSU100V9 SUBCUT; -LEVO88TA2 PO; +LOPE2CAP GT; -LOPE2CAP PO; +MEMA10TA GT; -MEMA10TA56 GT; -MEMA28CA PO; +METO-442 GT; -METO-442 PO; -MIRA25TA PO; +MULT-1117 GT; -NEU300 PO; -NIAC500T2 PO; -NITSL SL; +OXYB10TA4 GT; -PRAM0.253 PO; +PRAM0.258 GT; -ROSU10TA2 PO; +SYN50 GT; +VITD2000 GT; -VITD2000 PO
--- NOTE | 2022-03-17 07:55 | NUR ---
ER at bedside examining patient.
--- NOTE | 2022-03-17 07:57 | NUR ---
Covid swab done and sent to lab.
--- NOTE | 2022-03-17 07:58 | NUR ---
technical assistant at bedside.
[2022-03-17] MEDS ORDERED: CEFEPIME 2 GM in D5W 100 ML IV ONE (08:00)
[2022-03-17] MEDS ORDERED: VANCOMYCIN HCL 1,000 MG in D5W 250 ML IV ONE (08:00)
[2022-03-17] MEDS ORDERED: NS 1000 ML IV.SOLN IV ONE (08:00)
--- NOTE | 2022-03-17 08:00 | NUR ---
ASSESSED PT. BROUGHT IN VIA AMBUALANCE FROM [facility]. PT VITALS WITHIN NORMAL LIMITS WITH THE EXCEPTION OF TEMP 99.9F, GLUCOSE 201 (NOTIFIED dR), PT ON 2L 02 CANULA 02 SAT AT 99.
--- NOTE | 2022-03-17 08:07 | NUR ---
MRSA swab done and sent to lab.
--- NOTE | 2022-03-17 08:08 | NUR ---
EKG performed at BS. Physician given copy of EKG for review.
[2022-03-17] MEDS ORDERED: ACETAMINOPHEN 650 MG/20.3 ML UDC GT ONE (08:15)
[2022-03-17 08:19] LABS: BASOPHILS # (AUTO) 0.1 K/uL (0.0-0.2); BASOPHILS % (AUTO) 0.5 % (0.0-2.0); EOSINOPHILS # (AUTO) 0.1 K/uL (0.0-0.4); EOSINOPHILS % (AUTO) 0.5 % (0.0-4.0); HEMOGLOBIN 8.2 g/dL (14.0-18.0); LYMPHOCYTES # (AUTO) 0.7 K/uL (1.0-5.5); LYMPHOCYTES % (AUTO) 3.3 % (20.5-51.5); MEAN CORPUSCULAR HEMOGLOBIN 29 pg (27-31); MEAN CORPUSCULAR HGB CONC 33 % (32-36); MEAN CORPUSCULAR VOLUME 88 fL (79.0-98.0); MONOCYTES % (AUTO) 4.8 % (1.7-9.3); NEUTROPHILS # (AUTO) 18.3 K/uL (1.8-7.7); NEUTROPHILS % (AUTO) 90.9 % (40.0-70.0); PLATELET COUNT (AUTO) 473 K/uL (130-430); RED BLOOD CELL COUNT(AUTO) 2.84 MIL/uL (4.2-6.2); RED CELL DISTRIBUTION WIDTH 16.5 % (9.0-15.0); WHITE BLOOD COUNT (AUTO) 20.2 K/uL (4.8-10.8)
[2022-03-17 08:29] LABS: ANION GAP 2 (5-15); CALCIUM 7.8 mg/dL (8.4-11.0); CHLORIDE 101 mmol/L (98-107); CREATININE 0.64 mg/dL (0.55-1.30); GLUCOSE 215 mg/dL (70-99); POTASSIUM 4.2 mmol/L (3.5-5.1); SODIUM SERUM 132 mmol/L (136-145); UREA NITROGEN, BLOOD 13 mg/dL (8-21)
--- NOTE | 2022-03-17 08:30 | NUR ---
# 22 gauge angiocath placed to right hand. Use of asceptic technique. Opsite placed over site. Blood return noted. Flushed with 10 cc of normal saline. No evidence of infiltration noted. Patient tolerated well.
--- NOTE | 2022-03-17 08:33 | NUR ---
Chest X-Ray being done at bedside.
[2022-03-17 08:44] LABS: ALANINE AMINOTRANSFERASE 19 U/L (12-78); ALBUMIN 1.8 g/dL (3.4-4.8); ASPARTATE AMINOTRANSFERASE 21 U/L (10-37); THYROID STIMULATING HORMONE 9.27 uIu/mL (0.36-3.74); TOTAL BILIRUBIN 0.1 mg/dL (0.0-1.0)
[2022-03-17 08:51] LABS: BILIRUBIN,URINE NEGATIVE (NEGATIVE); CLARITY/URINE CLEAR (CLEAR); COLOR,URINE YELLOW (YELLOW); GLUCOSE,URINE NEGATIVE (NEGATIVE); KETONES,URINE NEGATIVE (NEGATIVE); LEUKOCYTE ESTERASE ,URINE TRACE (NEGATIVE); NITRITE, URINE NEGATIVE (NEGATIVE); PH,URINE 6.5 (5.0-8.0); PROTEIN URINE 2+ (NEGATIVE)
[2022-03-17 08:57] LABS: BLOOD, URINE TRACE (NEGATIVE)
[2022-03-17 09:01] LABS: BACTERIA,URINE FEW /HPF (None Seen); MUCUS,URINE 1+ /LPF (None Seen)
--- NOTE | 2022-03-17 09:07 | NUR ---
Removed non-rebreather and placed pt on NC running at 6l. O2 saturation at 98%. VSS. Suctioned pt. No s/s of distress.
[2022-03-17 09:18] VITALS: BP_SYST 135
[2022-03-17] MEDS ORDERED: ACETAMINOPHEN 650 MG/20.3 ML UDC GT PRN ×2 (09:30→15:15)
--- NOTE | 2022-03-17 09:30 | NUR ---
Admitting orders received from Dr. Martin and have been placed.
--- NOTE | 2022-03-17 09:34 | NUR ---
Admit bed requested Patient will be admitted to care of . Admitted to Tele unit. Diagnosis Yes Observation No Orientation concerns or request close to nursing station No Covid Status Negative On vent or bipap No Isolation requirements No Needs a sitter No From Home No. [facility] Requires Dialysis No Med Rec Completed Yes
[2022-03-17] MEDS ORDERED: MICA100V IV (09:42)
--- NOTE | 2022-03-17 09:43 | NUR ---
Medication reconciliation completed with information provided by [facility]. Any prior medication reconciliation on file was reviewed and corrected.
[2022-03-17 09:52] VITALS: BP_SYST 147
--- NOTE | 2022-03-17 10:00 | NUR ---
Received report from SALIMA Gabriel RN for continuity of care. Pt to transfer to room 113-B.
[2022-03-17 10:15] VITALS: BP_SYST 117
--- NOTE | 2022-03-17 10:15 | NUR ---
Opening Notes Received patient via gurney. Patient is asleep at this time. Flat affect, arousable to deep painful stimuli. Moderate SOB at rest, rhonchi lung sounds. Pt remains on 2 liters via NC, tolerating well. Oxy sat noted at 96%. Suctioned patient as needed. PICC line on MARILYN, single lumen, blood return noted, C/D/I, flushing well. NS bolus infusing at this time. Right hand 22 gauge intact, saline lock. KCl 20 mEq + NS @ 100 ml/hr, infusing well. FC draining by gravity, yellow and clear urine noted, malodorous. PEGTUBE in place, no residual noted at this time. Confirmed placement with stethoscope. Started TF: Glucerna 1.2 @ 50 ml/hr, infusing well. Pt is noted with multiple wounds: will place wound consult. Cardiac monitoring ST. Repositioned patient in bed with pillows. All needs met at this time. Safety and fall precautions in place. Bed in lowest position, alarm on, locked. Will continue to monitor.
--- NOTE | 2022-03-17 10:31 | NUR ---
transfered pt to tele 113b gave report to messi Lawrence
--- NOTE | 2022-03-17 10:59 | NUR ---
ATTENDING MD DR RENDON WAS CALLED, RE: CRITICAL TROP LEVEL.
[2022-03-17] MEDS ORDERED: [UNRECOGNIZED DRUG - OTHER] IV ONE ×2 (11:00)
[2022-03-17] MEDS ORDERED: NS IV ONE ×2 (11:00)
[2022-03-17] MEDS ORDERED: KCL 20 mEq in NS 1000 mL 1,000 ML IV ONE (11:00)
--- NOTE | 2022-03-17 12:00 | NUR ---
Notes Patient is sleeping at this time, flat affect. Arousable to deep painful stimuli. Pt noted with thick secretions, suctioned as needed. Moderate SOB at rest, pt remains on 2 liters via NC, toelrating well. No signs of pain at this time. Will continue to monitor.
[2022-03-17] MEDS: LevALBUTEROL HCL 1.25 MG/0.5 ML *CONC.* VIAL.NEB (XOPENEX CONC.) INH SCH ×2 (12:15→16:02)
[2022-03-17] MEDS ORDERED: LOPERAMIDE HCL 2 MG CAPSULE GT PRN (14:45)
[2022-03-17] MEDS ORDERED: ACETAMINOPHEN 325 MG TABLET GT SCH (14:45)
[2022-03-17] MEDS ORDERED: INSULIN REGULAR, HUMAN 100 UNITS/ML, 10 ML VIAL (humuLIN R) SUBCUT PRN (14:45)
[2022-03-17] MEDS ORDERED: LEVODOPA GT SCH (15:00)
[2022-03-17] MEDS ORDERED: CARBIDOPA GT SCH (15:00)
--- NOTE | 2022-03-17 15:21 | NUR ---
CONSULTATION PAGED/CALLED Reason for Consultation: [] SEPSIS Person Who was Notified: [] VITO Consulting Physician: [] DR SPIVEY Kitchen Clerk Specialty: [] ID Ordering Physician: [] DR RENDON
[2022-03-17 16:00] VITALS: BP_SYST 130
--- NOTE | 2022-03-17 16:00 | NUR ---
Notes Patient is being seen and examined by DR. ERNDON. Mild SOB at rest, suctioned as needed. Pt remains on 2 liters via NC, tolerated well. Pending wound care consult. Will continue to monitor.
[2022-03-17 16:50] VITALS: BP_SYST 145
[2022-03-17] MEDS: cloNIDine HCL 0.1 MG TABLET GT SCH (17:23)
[2022-03-17] MEDS: VANCOMYCIN HCL 1,250 MG in NS 250 ML IV SCH (17:24)
--- NOTE | 2022-03-17 17:57 | NUR ---
WOUND EVALUATION: Patient was seen by the courtesy of Dr. Martin. Thank you, Dr. Martin for the consult. Patient received in a Valery Bed, awake, nonverbal, nonresponsive to verbal commands, moans. Patient is unable to turn in bed independently. Kun Score is a 9. Past Medical History: Diabetes Mellitus, Hypothyroidism, Hypertension, Parkinson's disease, Advanced Dementia, Peripheral Vascular Disease of Lower Extremities, G-tube placement, Schizophrenia, COVID-Pneumonia, Coronary Artery Disease, Seizure disorder. Recent Labs: WBC 20.2, RBC 2.84, hemoglobin 8.2, hematocrit 25.0, platelets 473, sodium 132, glucose 215, calcium 7.8, Troponin I 86/94/87, Serum Total Protein 5.7, albumin 1.8. Microbiology: Blood culture results x2 in progress. Urine void culture results in progress. MRSA screen results in progress. Intrinsic factors that delay wound healing: Diabetes Mellitus, Peripheral Vascular Disease of Lower Extremities, severe Hypoalbuminemia. Extrinsic factors that delay wound healing: Immobility. Wound Assessment: 1. Sacral-Coccygeal area: Stage IV pressure ulcer, present on admission. Wound bed has 40% black slough, 50% yellow slough, 10% red tissue. Mild odor, scant yellow purulent drainage. Bone is visible. Undermining present from 9-3 o'clock (2.0 cm at 9 o'clock; 1.3 cm at 12 o'clock; 2.0 cm at 3 o'clock. Wound measures 5.9 cm x 8.0 cm x 2.5 cm. Recommend: Cleanse wound with normal saline. Apply moisture barrier cream to periwound. Apply Venelex ointment to wound bed. Pack wound with 1/2 inch iodoform packing strip. Cover with Sacral foam dressing. Perform wound care daily, and as needed for dressing soiling or dislodgment. 2. Left Heel: Blanchable redness. 3. Right Heel: Blanchable redness. Recommend: Elevate, offload and float bilateral heels with 1 pillow lengthwise and each extremity at all times. Do not allow heels to touch bed or other surfaces at any time. 4. Left Upper Extremity: Multiple areas of ecchymosis with a few scattered black scabs, present on admission. No odor, no drainage. 5. Right Upper Extremity: Multiple areas of ecchymosis with a few scattered black scabs, present on admission. No odor, no drainage. Recommend: No dressings needed. Continue to monitor sites every shift. 6. Posterior Lower Back, Superior to Pelvic Rim: Scar tissue, present on admission. Recommend: Cover site with foam dressing. Perform site care daily, and as needed for dressing soiling or dislodgment. Also recommend: Reposition patient side to side only every 2 hours with pillow support and off-load pressure areas with pillows for pressure re-distribution. Offload, elevate and float bilateral heels with 1 pillow lengthwise in each extremity at all times. Perform skin care and monitor skin integrity Q shift. Use moisture barrier cream on buttocks and other moisture susceptible areas QID and as needed for soiling. Place patient on a low air-loss mattress.
[2022-03-17] MEDS ORDERED: LEVALBUTEROL HCL 1.25 MG INH SCH (18:00)
[2022-03-17] MEDS: INSULIN REGULAR, HUMAN 100 UNITS/ML, 10 ML VIAL (humuLIN R) SUBCUT PRN (18:09)
--- NOTE | 2022-03-17 18:55 | NUR ---
Closing Notes Patient is awake, alert and oriented x0, arousable to deep painful stimuli. Moderate SOB at rest, congested. Suctioned as needed, brown phelgm noted. Pt remains on 2 liters via NC, tolerating well. IV site on right hand 22 gauge intact, saline lock. PICC line on MARILYN, single lumen, KCl 20 mEq + 1/2 NS @ 100 ml/hr, infusing well. FC draining by gravity, yellow and clear urine. PEGTUBE in place. TF: Glucerna 1.2 @ 50 ml/hr, infusing well. All needs met . Safety and fall precautions in place. Bed in lowest position, alarm on, locked. Will continue to montior.
[2022-03-17 20:00] VITALS: BP_SYST 146
[2022-03-17] MEDS: PRAMIPEXOLE DI-HCL 0.25 MG TABLET GT SCH (21:00)
[2022-03-17] MEDS: CARBIDOPA/LEVODOPA 25/100 MG TABLET GT SCH (21:00)
[2022-03-17] MEDS: MEROPENEM 500 MG in NS 50 ML IV SCH (21:24)
[2022-03-17] MEDS: HEPARIN SODIUM,PORCINE 5,000 UNITS/ML VIAL SUBCUT SCH (21:35)
[2022-03-17] MEDS: amLODIPine BESYLATE 10 MG TABLET GT SCH (21:37)
[2022-03-18] MEDS: amLODIPine BESYLATE 10 MG TABLET GT SCH (00:01)
[2022-03-18] MEDS: cloNIDine HCL 0.1 MG TABLET GT SCH ×4 (00:04→17:40)
[2022-03-18] MEDS: VALPROIC ACID ORAL SYRUP 250 MG/5 ML UDC GT SCH ×3 (00:06→22:02)
[2022-03-18] MEDS: LevALBUTEROL HCL 1.25 MG/0.5 ML *CONC.* VIAL.NEB (XOPENEX CONC.) INH SCH ×8 (00:16→23:46)
[2022-03-18] MEDS: KCL 20 mEq in 0.45% NS 1000 mL 1,000 ML IV SCH ×4 (00:45→22:03)
[2022-03-18 01:28] VITALS: BP_SYST 140
--- NOTE | 2022-03-18 03:18 | NUR ---
Recieved pt from AM nurse. Pt was discharged from hospital to snf, and sent back to hospital on 03/17 due to hypoxia and fever. Patient is awake, alert and oriented x0, arousable to deep painful stimuli. Moderate SOB at rest, congested. Given breathring treatment via blow by NRB. . Pt remains on 2 liters via NC, tolerating well. IV site on right hand 22 gauge intact, saline lock. PICC line on MARILYN, single lumen, KCl 20 mEq + 1/2 NS @ 100 ml/hr, infusing well. . PEGTUBE in place, will asses tube site. TF: Glucerna 1.2 @ 50 ml/hr, infusing well. All needs met . Safety and fall precautions in place. Bed in lowest position, alarm on, locked. Will continue to montior Addendum: 03/18/22 at 0327 by Nine field advisor late entry added. inital entry made at 03/17 1950 not recorded.
[2022-03-18] MEDS ORDERED: LEVOTHYROXINE SODIUM 0.137 MG TABLET GT SCH (06:00)
[2022-03-18] MEDS: LEVOTHYROXINE SODIUM 0.1 MG TABLET GT SCH (06:13)
[2022-03-18] MEDS: MEROPENEM 500 MG in NS 50 ML IV SCH ×3 (06:13→22:00)
[2022-03-18] MEDS: VANCOMYCIN HCL 1,250 MG in NS 250 ML IV SCH ×2 (06:15→17:40)
[2022-03-18] MEDS: HEPARIN SODIUM,PORCINE 5,000 UNITS/ML VIAL SUBCUT SCH ×3 (06:16→22:12)
[2022-03-18 06:58] LABS: BASOPHILS # (AUTO) 0.1 K/uL (0.0-0.2); BASOPHILS % (AUTO) 0.4 % (0.0-2.0); EOSINOPHILS # (AUTO) 0.1 K/uL (0.0-0.4); EOSINOPHILS % (AUTO) 0.4 % (0.0-4.0); LYMPHOCYTES # (AUTO) 1.5 K/uL (1.0-5.5); LYMPHOCYTES % (AUTO) 9.4 % (20.5-51.5); MEAN CORPUSCULAR HEMOGLOBIN 29 pg (27-31); MEAN CORPUSCULAR HGB CONC 33 % (32-36); MEAN CORPUSCULAR VOLUME 89 fL (79.0-98.0); MONOCYTES # (AUTO) 1.1 K/uL (0.0-1.0); MONOCYTES % (AUTO) 6.7 % (1.7-9.3); NEUTROPHILS # (AUTO) 13.6 K/uL (1.8-7.7); NEUTROPHILS % (AUTO) 83.1 % (40.0-70.0); PLATELET COUNT (AUTO) 380 K/uL (130-430); RED BLOOD CELL COUNT(AUTO) 2.32 MIL/uL (4.2-6.2); RED CELL DISTRIBUTION WIDTH 16.7 % (9.0-15.0); WHITE BLOOD COUNT (AUTO) 16.4 K/uL (4.8-10.8)
[2022-03-18] MEDS ORDERED: LEVOTHYROXINE SODIUM 0.05 MG TABLET GT SCH (07:00)
[2022-03-18 07:49] LABS: ANION GAP 3 (5-15); CALCIUM 7.6 mg/dL (8.4-11.0); CHLORIDE 104 mmol/L (98-107); GLUCOSE 169 mg/dL (70-99); POTASSIUM 3.9 mmol/L (3.5-5.1); SODIUM SERUM 132 mmol/L (136-145); UREA NITROGEN, BLOOD 10 mg/dL (8-21)
[2022-03-18 08:07] VITALS: BP_SYST 128
[2022-03-18 08:26] LABS: HEMOGLOBIN 6.8 g/dL (14.0-18.0)
[2022-03-18 08:27] LABS: HEMATOCRIT 20.6 % (36-54)
--- NOTE | 2022-03-18 08:29 | NUR ---
PAGED DR CLOUD FOR CRITICAL HGB OF 6.8 HCT 20.6.
[2022-03-18] MEDS: CLOPIDOGREL BISULFATE 75 MG TABLET GT SCH (09:55)
[2022-03-18] MEDS: ASCORBIC ACID 500 MG TABLET GT SCH (09:57)
[2022-03-18] MEDS: METOPROLOL TARTRATE 50 MG TABLET GT SCH (09:58)
[2022-03-18] MEDS: CARBIDOPA/LEVODOPA 25/100 MG TABLET GT SCH ×3 (09:59→22:02)
[2022-03-18] MEDS: ASPIRIN 81 MG TAB.CHEW GT SCH (09:59)
[2022-03-18] MEDS: LANSOPRAZOLE 30 MG CAPSULE.DR GT SCH (09:59)
[2022-03-18] MEDS: CHOLECALCIFEROL (VITAMIN D3) 2,000 UNIT TABLET GT SCH (10:13)
[2022-03-18] MEDS: BALSAM PERU/CASTOR OIL 56.7 GM OINT...G. TP SCH (10:20)
[2022-03-18] MEDS: MICAFUNGIN SODIUM 100 MG in NS 100 ML IV SCH (10:21)
[2022-03-18] MEDS: IMIPRAMINE HCL 25 MG GT SCH (10:24)
[2022-03-18] MEDS: MULTIVITAMINS TAB 1 TABLET GT SCH (10:24)
[2022-03-18] MEDS: INSULIN REGULAR, HUMAN 100 UNITS/ML, 10 ML VIAL (humuLIN R) SUBCUT PRN ×2 (12:44→17:35)
[2022-03-18 12:49] VITALS: BP_SYST 134
--- NOTE | 2022-03-18 14:00 | NUR ---
Dietitian Recommendations * Glucerna 1.5 at 60 ml/hr (goal rate), Lorne BID, Prosource daily, Free Water Flush: 200 ml Q6h via GT Provides: 2380 kcal/day, 139 gm protein/day, and 1893 ml free water/day Meets: 98% of lower end of estimated caloric needs, 86% of upper end of estimated protein needs, and 99% of lower end of estimated fluid needs LP, RD Please refer to Nutrition F/U for details. Addendum: 03/18/22 at [address] Amended: Links added.
--- NOTE | 2022-03-18 14:52 | NUR ---
ID WIRE STEWARD DR VILLALOBOS WAS CALLED, RE: GRAM POSITIVE BLOOD CX IN CLUSTERS. SPOKE TO WILLY
[2022-03-18 15:32] VITALS: BP_SYST 148
--- NOTE | 2022-03-18 18:56 | NUR ---
1 OF 2 PRBC TRANSFUSION COMPLETED WITH NO UNTOWARD RXN. NO SOB, NO FEVER.
--- NOTE | 2022-03-18 19:15 | NUR ---
OPENING NOTES: Patient received from AM shift. Patient is unable to communicate needs, no s/s of distress is noted at this time. Chest rise is even and unlabored on 3L NC and face mask. Patient is on telemonitoring. Active bowel sounds present x4, no tenderness noted on palpation, GT is noted and infusing. MARILYN PICC line noted and infusing ABX as ordered. It was reported to nurse by AM nurse that patient received 1 unit of PRC and still has 1 unit of PRBC pending to infuse. Patient tolerated the first dose and is currently stable at this time. Will resume care and continue to monitor the patient throughout the shift.
[2022-03-18 20:00] VITALS: BP_SYST 123
[2022-03-18 20:15] VITALS: BP_SYST 123
[2022-03-18] MEDS: GABAPENTIN 300 MG CAPSULE GT SCH ×2 (22:01)
[2022-03-18] MEDS: PRAMIPEXOLE DI-HCL 0.25 MG TABLET GT SCH (22:11)
[2022-03-19] VITALS: BP_SYST 123
--- NOTE | 2022-03-19 | NUR ---
Patient started on second unit of PRBC. No s/s of distress at this time no fever will continue to monitor.
[2022-03-19] MEDS: cloNIDine HCL 0.1 MG TABLET GT SCH ×4 (00:08→18:14)
[2022-03-19] MEDS: INSULIN REGULAR, HUMAN 100 UNITS/ML, 10 ML VIAL (humuLIN R) SUBCUT PRN ×3 (00:14→18:34)
--- NOTE | 2022-03-19 03:06 | NUR ---
2 of 2 Units of PRBC transfusions completed at this time with out complication or distress. No fever at this time. V/S post transfusion are 97.6, 121/59, 81, 16, 98%. Will continue to monitor.
[2022-03-19] MEDS: LevALBUTEROL HCL 1.25 MG/0.5 ML *CONC.* VIAL.NEB (XOPENEX CONC.) INH SCH ×4 (04:32→15:20)
[2022-03-19] MEDS: MEROPENEM 500 MG in NS 50 ML IV SCH ×3 (05:11→22:06)
[2022-03-19] MEDS: HEPARIN SODIUM,PORCINE 5,000 UNITS/ML VIAL SUBCUT SCH ×3 (06:00→22:10)
[2022-03-19 06:39] LABS: BASOPHILS # (AUTO) 0.1 K/uL (0.0-0.2); BASOPHILS % (AUTO) 0.5 % (0.0-2.0); EOSINOPHILS # (AUTO) 0.2 K/uL (0.0-0.4); EOSINOPHILS % (AUTO) 1.5 % (0.0-4.0); HEMATOCRIT 29.5 % (36-54); HEMOGLOBIN 9.8 g/dL (14.0-18.0); LYMPHOCYTES # (AUTO) 1.8 K/uL (1.0-5.5); LYMPHOCYTES % (AUTO) 13.7 % (20.5-51.5); MEAN CORPUSCULAR HEMOGLOBIN 29 pg (27-31); MEAN CORPUSCULAR HGB CONC 33 % (32-36); MEAN CORPUSCULAR VOLUME 86 fL (79.0-98.0); MONOCYTES # (AUTO) 0.8 K/uL (0.0-1.0); MONOCYTES % (AUTO) 6.5 % (1.7-9.3); NEUTROPHILS % (AUTO) 77.8 % (40.0-70.0); PLATELET COUNT (AUTO) 339 K/uL (130-430); RED BLOOD CELL COUNT(AUTO) 3.43 MIL/uL (4.2-6.2); RED CELL DISTRIBUTION WIDTH 16.3 % (9.0-15.0); WHITE BLOOD COUNT (AUTO) 12.8 K/uL (4.8-10.8)
[2022-03-19] MEDS: KCL 20 mEq in 0.45% NS 1000 mL 1,000 ML IV SCH ×2 (06:45→16:45)
[2022-03-19] MEDS: LEVOTHYROXINE SODIUM 0.1 MG TABLET GT SCH (07:00)
--- NOTE | 2022-03-19 07:09 | NUR ---
CLOSING NOTES: Patient is currently in bed resting no s/s of distress noted. Chest rise is even and unlabored at this time. GT is still infusing and patient is tolerating it well with no residual at this time. Safety measures are in place and patient has call light within reach. Will differ further care to AM shift for continuity of care.
[2022-03-19 07:32] LABS: ALANINE AMINOTRANSFERASE 9 U/L (12-78); ALBUMIN 1.5 g/dL (3.4-4.8); ANION GAP 7 (5-15); ASPARTATE AMINOTRANSFERASE 27 U/L (10-37); CALCIUM 7.6 mg/dL (8.4-11.0); CHLORIDE 103 mmol/L (98-107); CREATININE 0.48 mg/dL (0.55-1.30); GLUCOSE 173 mg/dL (70-99); POTASSIUM 3.9 mmol/L (3.5-5.1); SODIUM SERUM 134 mmol/L (136-145); TOTAL BILIRUBIN 0.2 mg/dL (0.0-1.0); UREA NITROGEN, BLOOD 11 mg/dL (8-21)
[2022-03-19 08:30] VITALS: BP_SYST 134
[2022-03-19] MEDS: BALSAM PERU/CASTOR OIL 56.7 GM OINT...G. TP SCH (09:00)
[2022-03-19] MEDS: VALPROIC ACID ORAL SYRUP 250 MG/5 ML UDC GT SCH ×2 (10:45→22:03)
[2022-03-19] MEDS: ASPIRIN 81 MG TAB.CHEW GT SCH (10:45)
[2022-03-19] MEDS: CHOLECALCIFEROL (VITAMIN D3) 2,000 UNIT TABLET GT SCH (10:45)
[2022-03-19] MEDS: MULTIVITAMINS TAB 1 TABLET GT SCH (10:46)
[2022-03-19] MEDS: ASCORBIC ACID 500 MG TABLET GT SCH (10:46)
[2022-03-19] MEDS: CLOPIDOGREL BISULFATE 75 MG TABLET GT SCH (10:46)
[2022-03-19] MEDS: METOPROLOL TARTRATE 50 MG TABLET GT SCH (10:47)
[2022-03-19] MEDS: LANSOPRAZOLE 30 MG CAPSULE.DR GT SCH (10:47)
[2022-03-19] MEDS: CARBIDOPA/LEVODOPA 25/100 MG TABLET GT SCH ×3 (10:59→22:04)
[2022-03-19] MEDS: MICAFUNGIN SODIUM 100 MG in NS 100 ML IV SCH (11:07)
[2022-03-19 11:34] VITALS: BP_SYST 147
[2022-03-19] MEDS: IMIPRAMINE HCL 25 MG GT SCH (12:59)
[2022-03-19 15:30] VITALS: BP_SYST 126
[2022-03-19] MEDS: VANCOMYCIN HCL 1,000 MG in NS 250 ML IV SCH (18:11)
[2022-03-19 19:00] VITALS: BP_SYST 115
--- NOTE | 2022-03-19 19:35 | NUR ---
Patient has been stable throughout the shift. HOB elevated semifowler's position. Noted thick secretions removed when suctioned orally. Patient remains nonverbal. Pt tolerating peg tube feedings without any N/V/D. No change in condition noted. Report given to oncoming nurse.
[2022-03-19 20:00] VITALS: BP_SYST 115
--- NOTE | 2022-03-19 20:00 | NUR ---
pt.assessed.v/s assessed values wnl.picc line,,g-tube,foledy cath intact.per flacc pain mgx pt.absent facial grimaces/body posturing.pt.assessed for cleanliness.pt.repositioned.call light/telephone placed w/in access of the pt.o2-sat%=100%.seizure precautions noted.
--- NOTE | 2022-03-19 21:00 | NUR ---
2100p medications adminmisp[ed via ht g-tube.g-tube rsadus;ls assnote levated amoyunt>100ml.hold g-tub feed.per zac ramirez pt.absefclagptm,aces/bofy sa[yuinmg/ca;light/telewhp /waces sof thpt.
--- NOTE | 2022-03-19 22:00 | NUR ---
pt.assessed.o2-sat%=100%picc line,g-tube,crews cath intact.per flacc pain mgx pt.absent facial grimaces/body posturing. pt.assessed for cleanliness pt.repositioned.call light/telephone placed w/in access of the pt.
[2022-03-19] MEDS: GABAPENTIN 300 MG CAPSULE GT SCH (22:03)
[2022-03-19] MEDS: PRAMIPEXOLE DI-HCL 0.25 MG TABLET GT SCH (22:03)
[2022-03-19] MEDS: amLODIPine BESYLATE 10 MG TABLET GT SCH (22:07)
[2022-03-20] VITALS: BP_SYST 101; BP_SYST 106
--- NOTE | 2022-03-20 | NUR ---
pt.assessed.v/s assessed values note b/p low status.hold catapres midnight scheduled dose.blood glucose assessed value 172mg/dl.insulin;regular 2-u administered.picc line,g-tube,crews cath intact.per flacc pain mgx pt.absent facial grimaces/body posturing. pt.assessed for cleanliness.pt.repositioned.call light/telephone place w/in access of the pt. Addendum: 03/20/22 at 0219 by Collin Orourke RN o2-sat%=100%.
[2022-03-20] MEDS: INSULIN REGULAR, HUMAN 100 UNITS/ML, 10 ML VIAL (humuLIN R) SUBCUT PRN ×3 (00:32→16:51)
[2022-03-20] MEDS: LevALBUTEROL HCL 1.25 MG/0.5 ML *CONC.* VIAL.NEB (XOPENEX CONC.) INH SCH ×8 (01:22→23:23)
--- NOTE | 2022-03-20 02:00 | NUR ---
pt.assessed.picc line,g-tube,crews cath intact.per flacc pain mgx pt.absent facial grimaces/body posturing.pt.assessed for cleanliness.pt.repositioned.02-sun%=100%.call light/telephone w/in access of the pt.
--- NOTE | 2022-03-20 04:00 | NUR ---
pt.assessed.picc line,g-tube,crews cath intact.per flacc pain mgx pt.absent facial grimaces/body psoturing.pt.assessed for cleanliness.pt.cleaned/repositioned.i have attended to the wound care;dsg changes.g-tube,picc line dsg changed.%= 98%.call light./telephone placed w/in access of the pt.
[2022-03-20 06:00] VITALS: BP_SYST 127
--- NOTE | 2022-03-20 06:00 | NUR ---
pt.assessed.v/s assessed p/t administration catapres:0600a dose.merrem,vancomycin abx ivpb administered.pt.repositioned. call light/telephone placed w/in access of the pt.
[2022-03-20 06:42] LABS: BASOPHILS % (AUTO) 0.4 % (0.0-2.0); EOSINOPHILS # (AUTO) 0.4 K/uL (0.0-0.4); EOSINOPHILS % (AUTO) 3.4 % (0.0-4.0); HEMATOCRIT 34.1 % (36-54); HEMOGLOBIN 11.1 g/dL (14.0-18.0); LYMPHOCYTES # (AUTO) 1.3 K/uL (1.0-5.5); LYMPHOCYTES % (AUTO) 11.3 % (20.5-51.5); MEAN CORPUSCULAR HEMOGLOBIN 28 pg (27-31); MEAN CORPUSCULAR HGB CONC 33 % (32-36); MEAN CORPUSCULAR VOLUME 87 fL (79.0-98.0); MONOCYTES # (AUTO) 0.9 K/uL (0.0-1.0); MONOCYTES % (AUTO) 7.6 % (1.7-9.3); NEUTROPHILS # (AUTO) 8.9 K/uL (1.8-7.7); NEUTROPHILS % (AUTO) 77.3 % (40.0-70.0); PLATELET COUNT (AUTO) 322 K/uL (130-430); RED BLOOD CELL COUNT(AUTO) 3.94 MIL/uL (4.2-6.2); RED CELL DISTRIBUTION WIDTH 16.3 % (9.0-15.0); WHITE BLOOD COUNT (AUTO) 11.5 K/uL (4.8-10.8)
[2022-03-20] MEDS: MEROPENEM 500 MG in NS 50 ML IV SCH (06:42)
[2022-03-20] MEDS: VANCOMYCIN HCL 1,000 MG in NS 250 ML IV SCH ×2 (06:42→17:54)
[2022-03-20] MEDS: cloNIDine HCL 0.1 MG TABLET GT SCH ×5 (06:45→23:30)
[2022-03-20] MEDS: LEVOTHYROXINE SODIUM 0.1 MG TABLET GT SCH (06:49)
[2022-03-20] MEDS: HEPARIN SODIUM,PORCINE 5,000 UNITS/ML VIAL SUBCUT SCH ×3 (06:51→21:02)
[2022-03-20 07:11] LABS: ANION GAP 5 (5-15); CALCIUM 8.4 mg/dL (8.4-11.0); CHLORIDE 100 mmol/L (98-107); CREATININE 0.53 mg/dL (0.55-1.30); GLUCOSE 126 mg/dL (70-99); POTASSIUM 4.2 mmol/L (3.5-5.1); SODIUM SERUM 131 mmol/L (136-145); UREA NITROGEN, BLOOD 11 mg/dL (8-21)
[2022-03-20] MEDS: KCL 20 mEq in 0.45% NS 1000 mL 1,000 ML IV SCH ×2 (07:51→12:45)
[2022-03-20 08:00] VITALS: BP_SYST 133
--- NOTE | 2022-03-20 08:00 | NUR ---
received patient from pm nurse, laying in bed, eyes open, no s/sx of pain or distress observed, no sob, crews cath has small amount of yellow urine in bag, picc line infusing, g tube feed runing at 60ml/hr, will assume all care of patient
--- NOTE | 2022-03-20 09:00 | NUR ---
blood pressure 100/58, catapress held at this time
[2022-03-20] MEDS: ASPIRIN 81 MG TAB.CHEW GT SCH (10:05)
[2022-03-20] MEDS: CHOLECALCIFEROL (VITAMIN D3) 2,000 UNIT TABLET GT SCH (10:05)
[2022-03-20] MEDS: CLOPIDOGREL BISULFATE 75 MG TABLET GT SCH (10:06)
[2022-03-20] MEDS: CARBIDOPA/LEVODOPA 25/100 MG TABLET GT SCH ×3 (10:06→20:53)
[2022-03-20] MEDS: MULTIVITAMINS TAB 1 TABLET GT SCH (10:07)
[2022-03-20] MEDS: LANSOPRAZOLE 30 MG CAPSULE.DR GT SCH (10:07)
[2022-03-20] MEDS: ASCORBIC ACID 500 MG TABLET GT SCH (10:07)
[2022-03-20] MEDS: METOPROLOL TARTRATE 50 MG TABLET GT SCH (10:08)
[2022-03-20] MEDS: VALPROIC ACID ORAL SYRUP 250 MG/5 ML UDC GT SCH ×2 (10:08→20:52)
[2022-03-20] MEDS: BALSAM PERU/CASTOR OIL 56.7 GM OINT...G. TP SCH (10:09)
[2022-03-20] MEDS: IMIPRAMINE HCL 25 MG GT SCH (10:23)
--- NOTE | 2022-03-20 10:30 | NUR ---
spoke to daughter provided update on patients condition, kostas matress requested and will be provided to patient
[2022-03-20] MEDS: MICAFUNGIN SODIUM 100 MG in NS 100 ML IV SCH (11:49)
[2022-03-20 12:23] VITALS: BP_SYST 105
--- NOTE | 2022-03-20 12:30 | NUR ---
blood sugar 177, 2 units of insulin given per sliding scale
[2022-03-20 16:12] VITALS: BP_SYST 110
[2022-03-20] MEDS ORDERED: CHLORHEXIDINE GLUC 0.12% 15 ML MOUTHWASH UDC MM SCH (16:30)
[2022-03-20] MEDS ORDERED: CHLORHEXIDINE GLUC 0.12% 15 ML MOUTHWASH UDC MM ONE (17:15)
--- NOTE | 2022-03-20 17:30 | NUR ---
blood sugar 179 ,2 units insulin administered per sliding scale
--- NOTE | 2022-03-20 19:30 | NUR ---
OPENING NOTES: Patient received from AM shift no s/s of distress is noted at this time. Patient is unable to verbalize needs. Chest rise is even and unlabored on 3L via NC. Normal heart sounds present on Tele monitoring. Active bowel sounds x4 present on auscultation, no pain noted with palpation, PEG tube noted and infusing Jevity 1.2 at 60ml/hr. Guerrero cath noted, patent and with yellow urine. Sacral wound noted with dressing C/D/I. Will resume care and monitor the patient throughout the shift. Addendum: 03/21/22 at 0650 by [employer] air carrier inspector GT infusing Glucerna 1.5 at 60ml/hr
[2022-03-20 20:00] VITALS: BP_SYST 142
[2022-03-20] MEDS: CHLORHEXIDINE GLUC 0.12% 15 ML MOUTHWASH UDC MM SCH (20:52)
[2022-03-20] MEDS: PRAMIPEXOLE DI-HCL 0.25 MG TABLET GT SCH (20:52)
[2022-03-20] MEDS: GABAPENTIN 300 MG CAPSULE GT SCH (20:53)
[2022-03-20] MEDS: amLODIPine BESYLATE 10 MG TABLET GT SCH (20:54)
[2022-03-20] MEDS: CEFEPIME 1 GM in D5W 50 ML IV SCH (21:03)
[2022-03-21] VITALS (7 sets, daily range): BP systolic 92–154
[2022-03-21] MEDS: KCL 20 mEq in 0.45% NS 1000 mL 1,000 ML IV SCH ×2 (04:57→09:54)
[2022-03-21] MEDS: VANCOMYCIN HCL 1,000 MG in NS 250 ML IV SCH ×2 (05:05→17:53)
[2022-03-21] MEDS: cloNIDine HCL 0.1 MG TABLET GT SCH ×3 (06:17→17:53)
[2022-03-21] MEDS: LEVOTHYROXINE SODIUM 0.1 MG TABLET GT SCH (06:18)
[2022-03-21] MEDS: HEPARIN SODIUM,PORCINE 5,000 UNITS/ML VIAL SUBCUT SCH ×2 (06:19→15:02)
[2022-03-21] MEDS: INSULIN REGULAR, HUMAN 100 UNITS/ML, 10 ML VIAL (humuLIN R) SUBCUT PRN ×3 (06:20→17:56)
--- NOTE | 2022-03-21 06:51 | NUR ---
Patient is in bed resting no s/s of distress at this time. Chest rise is even and unlabored on 3L via NC. Patient is unable to verbalize needs. All current shift needs have been met at this time. 0600 BS was 171 and 2 units of coverage was administered. Addendum: 03/21/22 at 0652 by [employer] critical care unit manager Will differ further care to AM shift nurse for continuity of care.
[2022-03-21] MEDS: LevALBUTEROL HCL 1.25 MG/0.5 ML *CONC.* VIAL.NEB (XOPENEX CONC.) INH SCH ×3 (07:47→15:00)
[2022-03-21] MEDS: ASPIRIN 81 MG TAB.CHEW GT SCH (09:54)
[2022-03-21] MEDS: MULTIVITAMINS TAB 1 TABLET GT SCH (09:55)
[2022-03-21] MEDS: CLOPIDOGREL BISULFATE 75 MG TABLET GT SCH (09:55)
[2022-03-21] MEDS: CHOLECALCIFEROL (VITAMIN D3) 2,000 UNIT TABLET GT SCH (09:55)
[2022-03-21] MEDS: IMIPRAMINE HCL 25 MG GT SCH (09:55)
[2022-03-21] MEDS: ASCORBIC ACID 500 MG TABLET GT SCH (09:55)
[2022-03-21] MEDS: LANSOPRAZOLE 30 MG CAPSULE.DR GT SCH (09:55)
[2022-03-21] MEDS: VALPROIC ACID ORAL SYRUP 250 MG/5 ML UDC GT SCH (09:56)
[2022-03-21] MEDS: CARBIDOPA/LEVODOPA 25/100 MG TABLET GT SCH ×2 (09:56→15:00)
[2022-03-21] MEDS: CHLORHEXIDINE GLUC 0.12% 15 ML MOUTHWASH UDC MM SCH (09:57)
[2022-03-21] MEDS: CEFEPIME 1 GM in D5W 50 ML IV SCH (09:57)
[2022-03-21] MEDS: BALSAM PERU/CASTOR OIL 56.7 GM OINT...G. TP SCH (09:58)
[2022-03-21] MEDS: METOPROLOL TARTRATE 50 MG TABLET GT SCH (10:05)
[2022-03-21] MEDS: MICAFUNGIN SODIUM 100 MG in NS 100 ML IV SCH (13:34)
--- NOTE | 2022-03-21 15:08 | NUR ---
Nutrition F/U Admitting Diagnosis Sepsis Reviewed Pertinent Medical/Surgical Hx Medical Record Patient Other Medical History Comment: PMH: HTN, DM, Parkinson's Dz, dementia, PVD of LE per physician notes Pt also found w/ UTI and fungemia per physician notes Per Sign Writer Letterer Or Painter note 03/17: 1. Sacral-Coccygeal area: Stage IV pressure ulcer, present on admission. 2. Left Heel: Blanchable redness. 3. Right Heel: Blanchable redness. 4. Left Upper Extremity: Multiple areas of ecchymosis with a few scattered black scabs, present on admission. 5. Right Upper Extremity: Multiple areas of ecchymosis with a few scattered black scabs, present on admission. 6. Posterior Lower Back, Superior to Pelvic Rim: Scar tissue, present on admission SARS-CoV-2 Ag (Rapid) Negative 03/[address] bedside visit deferred d/t high workload. Per EMR review, Kun score 9 wounds noted to L. and R. heels, R. toe, sacrum, and upper back, ecchymosis to upper arm; 2+ non-pitting edema to B. foot; abd. is soft and non-distended w/ active bowel sounds; last BM x1 510; TF Glucerna 1.5, infusion rate: 60 ml/hr, GRV: 15 ml /10. Current TF prescription meets estimated nutritional needs. Current Diet Order/Nutrition Support Glucerna 1.5 at 60 ml/hr, Free Water Flush: 200 Q6H, Lorne BID, Prosource daily via GT x3 days Patient/Significant Other Unable To Verbalize Education Provided Not Indicated Pertinent Medications synthroid, heparin, neurontin, vancomycin, SSI, KCl/NS IV, ZnSO4, MVI, Lopressor, Vit D3, Vit C, immodium Pertinent Labs H/H 11.1 L/34.1 L, WBC 11.5 H, 5/9: Na 131 L, Cr 0.53 L, BG 126 H, POC BG 172 H Height (Feet) 6 feet Height (Inches) 0.00 inches Weight (Pounds) 140 pounds Weight (Calculated Kilograms) 63.956918 kilograms Patient Weight 63.503 kg Body Mass Index 18.99 kg/m2 %IBW 79 [place]/Adjusted Body Weight 178#/81 kg Recent Weight Change Unable to verify Weight Status Underweight Food Allergies Unable to verify Estimated Energy Expenditure (kcals/day) 4116-3151 (30-35 kcal/kg IBW d/t sepsis, wounds, underwt status) Estimated Protein Required (g/day) 122-162 (1.5-2 gm/kg IBW d/t sepsis, wounds, underwt status) Estimated Fluid Required (l/day) 1.9-2.2 (30-35 ml/kg CBW d/t GERIAT status, wound healing) Problem/Etiology/Signs/Symptoms Suboptimal EN support R/T increased metabolic demands AEB estimated nutritional requirements for sepsis, wound healing, and underwt status. (*Resolved w/ change in EN) Increased nutritional needs r/t metabolic demands AEB estimated energy and protein needs for sepsis and wound healing. (*New) Expected Outcomes/Goals - Monitor tolerance to EN support w/ goal of pt meeting >80% of estimated nutritional needs, labs trending WNL, normal GI function, and skin integrity/wt maintenance Dietitian Recommendations * Glucerna 1.5 at 60 ml/hr (goal rate), Lorne BID, Prosource daily, Free Water Flush: 200 ml Q6h via GT Provides: 2380 kcal/day, 139 gm protein/day, and 1893 ml free water/day Meets: 98% of lower end of estimated caloric needs, 86% of upper end of estimated protein needs, and 99% of lower end of estimated fluid needs Follow Up High Risk: F/U in 2-3days
--- NOTE | 2022-03-21 15:09 | NUR ---
Dietitian Recommendations * Glucerna 1.5 at 60 ml/hr (goal rate), Lorne BID, Prosource daily, Free Water Flush: 200 ml Q6h via GT Provides: 2380 kcal/day, 139 gm protein/day, and 1893 ml free water/day Meets: 98% of lower end of estimated caloric needs, 86% of upper end of estimated protein needs, and 99% of lower end of estimated fluid needs Please refer to Nutrition F/U for details.
--- NOTE | 2022-03-21 15:12 | NUR ---
covering nurse.scheduled medication administered.patient stable condition, no s/s of distress.
--- NOTE | 2022-03-21 15:16 | NUR ---
Discharge Planning: DCP faxed pt referral to [facility] P#[phone] DCP to follow up Addendum: 03/21/22 at 1609 by Jana Olivera DP [facility] P#[phone] accepted Rm 1C DCP arrange transport with [facility] [phone] BLS 7:00pm. DCP made nurse aware and patient packet taken to nurse station.
--- NOTE | 2022-03-21 18:31 | NUR ---
Patient was stable throughout the day. WBC have decreased, patient is more alert. Patient to be DC back to facility of initial dwelling. Wound care was done, wound redressed, antibiotics were given. Patient to be picked up by 19:00. Report given to Dianna CROCKETT from [facility]. Addendum: 03/21/22 at 1833 by Duke Ramirez RN Guerrero care done
--- NOTE | 2022-03-21 21:05 | NUR ---
Discharge / Report given by day shift nurse to [facility]. Transfer packet with Transfer Orders and Medication Reconciliation form given to EMT with report. Exitcare provided. [facility] ID band removed, replaced with ID band with pt's name and . MARILYN midline intact and patent, crews catheter in place. No belongings at bedside. Patient left floor via gurney escorted by EMT in no distress. Addendum: 03/22/22 at 0152 by Anita Ambriz RN Discharge picture of sacral/buttocks wound taken. Unable to take additional pictures e.g. arms (ecchymosis) due to battery ran out and unable to get replacement.
== END 2022-03-21 21:10 | DRG 871 ==
LOC: SED 07:46 → STU 09:25
PROVIDERS: ADMIT Family Medicine; ATTEND Family Medicine
PROC: 30233N1 Transfusion of Nonautologous Red Blood Cells into Peripheral Vein, Percutaneous Approach (ICD-10-PCS; principal; 2022-03-18)
DX: A41.02 Sepsis due to Methicillin resistant Staphylococcus aureus (principal); L89.154 Pressure ulcer of sacral region, stage 4; J96.01 Acute respiratory failure with hypoxia; I21.4 Non-ST elevation (NSTEMI) myocardial infarction; J15.9 Unspecified bacterial pneumonia; N39.0 Urinary tract infection, site not specified; B49 Unspecified mycosis; R65.20 Severe sepsis without septic shock; Z66 Do not resuscitate; G20 Parkinson's disease; I10 Essential (primary) hypertension; E03.9 Hypothyroidism, unspecified; I25.10 Atherosclerotic heart disease of native coronary artery without angina pectoris; F20.9 Schizophrenia, unspecified; G40.909 Epilepsy, unspecified, not intractable, without status epilepticus; F02.80 Dementia in other diseases classified elsewhere, unspecified severity, without behavioral disturbance, psychotic disturbance, mood disturbance, and anxiety; Z20.822 Contact with and (suspected) exposure to COVID-19; E11.51 Type 2 diabetes mellitus with diabetic peripheral angiopathy without gangrene; D64.9 Anemia, unspecified; Z74.01 Bed confinement status; Z87.440 Personal history of urinary (tract) infections; Z88.0 Allergy status to penicillin; Z79.899 Other long term (current) drug therapy; Z79.82 Long term (current) use of aspirin; Z79.02 Long term (current) use of antithrombotics/antiplatelets; Z95.5 Presence of coronary angioplasty implant and graft; Z86.73 Personal history of transient ischemic attack (TIA), and cerebral infarction without residual deficits; Z86.16 Personal history of COVID-19; Z87.01 Personal history of pneumonia (recurrent); Z93.1 Gastrostomy status
CPT/HCPCS: 36415; 36430; 71045; 80048; 80053; 80202; 81000; 82272; 82962; 83605; 83880; 84443; 84484; 85025; 86886; 86900; 86901; 86920; 87040; 87081; 87086; 93005; 94640; 94760; 96365; 96375; 99291; G0378; J0692; J1644; J1815; J2185; J2248; J3370; J3480; J7030; J7050; J7060; J7612; P9021